=== PATIENT | female | born 1960 | race Caucasian/White ===

== ENCOUNTER → 2016-08-17 | Outpatient (CLI) | payer OTHER ==
[2016-08-17 12:06] LABS: Basophils # (A) 0.1 k/uL (0-0.2); Basophils % (A) 1 %; CH 30.6; CHCM 34.2; Eosinophils # (A) 0.7 k/uL (0-0.7); Eosinophils % (A) 8 %; HCT 37.5 % (34.0-46.0); HDW 2.44; HGB 12.8 gm/dL (11.4-16.0); Luc % (Auto) 4; Lymphocytes % (A) 31 %; MCH 30.6 pg (25.0-35.0); MCHC 34.1 g/dL (31.0-37.0); MCV 89.8 fL (80.0-100.0); Mean Platelet Volume 7.3; Monocytes # (A) 0.5 k/uL (0-1.0); Monocytes % (A) 5 %; Neutrophils % (A) 51 %; RBC 4.17 m/uL (3.80-5.40); RDW 13.5 % (11.5-15.5); WBC 9.7 k/uL (3.8-10.6); WBC (Perox) 10.12
[2016-08-17 12:30] LABS: ALT 28 U/L (9-52); AST 23 U/L (14-36); Alkaline Phosphatase 54 U/L (38-126); Anion Gap 11 mmol/L; Blood Urea Nitrogen 4 mg/dL (7-17); Calcium 8.9 mg/dL (8.4-10.2); Carbon Dioxide 24 mmol/L (22-30); Chloride 95 mmol/L (98-107); Glucose 166 mg/dL (74-99); Non-African American GFR(MDRD) >60 (>60 ml/min/1.73 sqM); Sodium 130 mmol/L (137-145); Total Bilirubin 0.4 mg/dL (0.2-1.3); Total Protein 6.6 g/dL (6.3-8.2)
[2016-08-17 13:12] LABS: Vitamin B12 255 pg/mL (239-931)
== END | disposition home or self-care (01) ==
LOC: LABWHC1 11:16
PROVIDERS: ATTEND Psychiatry & Neurology Neurology
DX: E55.9 Vitamin D deficiency, unspecified (principal); M62.838 Other muscle spasm
CPT/HCPCS: 36415; 80053; 82306; 82607; 85025

== ENCOUNTER → 2016-08-17 | Outpatient (CLI) | payer OTHER ==
--- NOTE | 2016-08-17 16:01 | MR ---
EXAMINATION TYPE: MR lumbar spine wo/w con DATE OF EXAM: 08/17/2016 1:15 PM COMPARISON: 11/16/2014 HISTORY: 56-year-old female with low back pain Technique: Multiplanar, multisequence images of the lumbar spine were obtained before and after admin istration of 20 mL intravenous MultiHance gadolinium contrast. FINDINGS: There is metal hardware artifact relating to the patient's left hip total arthroplasty. Conus medullaris is normal. Redemonstrated are postsurgical changes of L5-S1 posterior and interbody lumbar fusion with correspon ding laminectomies. There is degenerative disc disease throughout the lumbar spine with desiccated discs. There is modera te to severe narrowing at L3-L4 progress from 11/16/2014 has had a grade 1 retrolisthesis. Trace retrolisthesis at both L1-L2 and L2-L3 appear new from prior exam. There is a new superior endplate Schmorl's node of L1 vertebral body. Redemonstrated posterior annular fissures at both L3-4 and L4-L5. At T12-L1, mild diffuse disc bulge with degenerative disc disease progressed at this level. No signif icant spinal canal or neuroforaminal stenosis. At L1-L2, trace grade 1 retrolisthesis. There is diffuse disc bulge impressing on the ventral thecal sac minimally increased in the interval. No significant spinal canal or neural foraminal stenosis. At L2-L3, there is trace retrolisthesis with diffuse disc bulge and facet degenerative change. Minima l bilateral inferior neuroforaminal narrowing is slightly increased. There is ventral impression on t he thecal sac without significant spinal canal stenosis. At L3-L4, there is diffuse disc bulge with posterior annular fissure. There is facet degenerative sena nge and moderate right greater than left neuroforaminal stenosis, relatively stable. A grade 1 retrol isthesis is slightly increased and there is increased, now moderate spinal canal stenosis here. At L4-L5, level above the fusion, there is diffuse disc bulge with enhancing posterior annular. Ligam entum flavum flavum thickening and facet arthropathy. Prominent dorsal epidural fat is also present. There is increasing, now moderate to severe spinal canal stenosis. Some minimal CSF signal remains ar ound the cauda equina nerve roots. Similar moderate left and mild right neuroforaminal stenosis. At L5-S1, at the fused level, there is facet degenerative change. Suspect moderate left and mild righ t neural foraminal stenosis, not significantly changed in the interval. No spinal canal stenosis. No suspicious perineural or epidural enhancement A 1.3 cm left adrenal gland nodule is unchanged ingesting benign adrenal adenoma. IMPRESSION: 1. Status post posterior and interbody L5-S1 lumbar fusion with laminectomy. There is similar moderat e left and mild right neuroforaminal stenosis at this level. 2. Increasing, now moderate to severe spinal canal stenosis above the fusion at L4-L5; similar modera te left and mild right neuroforaminal stenosis here. 3. Grade 1 retrolisthesis at L3-L4 and degenerative disc disease has increased in the interval. There is also new trace grade 1 retrolistheses at L1-L2 and L2-L3. 4. Moderate right greater than left neuroforaminal stenosis at L3-L4 is also relatively similar.
== END | disposition home or self-care (01) ==
LOC: RADMRIMAIN 11:40
PROVIDERS: ATTEND Orthopaedic Surgery Orthopaedic Surgery of the Spine
DX: M48.06 Spinal stenosis, lumbar region (principal); M99.73 Connective tissue and disc stenosis of intervertebral foramina of lumbar region; M43.16 Spondylolisthesis, lumbar region; M54.16 Radiculopathy, lumbar region; E11.8 Type 2 diabetes mellitus with unspecified complications; Z98.1 Arthrodesis status
CPT/HCPCS: 72158; A9577

== ENCOUNTER → 2016-10-28 | Outpatient (CLI) | payer OTHER ==
[2016-10-28 16:40] LABS: Blood Urea Nitrogen 2 mg/dL (7-17); Non-African American GFR(MDRD) >60 (>60 ml/min/1.73 sqM)
== END | disposition home or self-care (01) ==
LOC: LABWHC1 15:45
PROVIDERS: ATTEND Psychiatry & Neurology Neurology
DX: Z01.812 Encounter for preprocedural laboratory examination (principal); R51 Headache; R42 Dizziness and giddiness; M54.5 Low back pain
CPT/HCPCS: 36415; 82565; 84520

== ENCOUNTER → 2016-10-30 | Outpatient (CLI) | payer OTHER ==
--- NOTE | 2016-10-30 09:30 | MR ---
EXAMINATION TYPE: MR brain wo con DATE OF EXAM: 10/30/2016 8:47 AM COMPARISON: NONE HISTORY: R51 Headaches R42 dizziness FINDINGS: The ventricles, basal cisterns and sulci overlying the cerebral convexities are mildly enlarged. Dev elopmental asymmetry of the lateral ventricles. There is evidence of mild periventricular white matter ischemic demyelination. Remote deep white matter insults are also noted. No acute edema is seen on diffusion weighted imaging. There is no evidence for midline shift or mass effect. Acute intracranial hemorrhage or extra-axial collection is not evident. Small air-fluid level left maxillary sinus may reflect acute sinusitis. Chronic ethmoidal thickening noted. Mastoid air cells well aerated. IMPRESSION: Age-related atrophic and chronic small vessel ischemic change. No acute intracranial process at this time.
--- NOTE | 2016-10-30 09:45 | MR ---
EXAMINATION TYPE: MR lumbar spine wo/w con DATE OF EXAM: 10/30/2016 9:15 AM COMPARISON: 08/17/2016 HISTORY: low back pain for many years CONTRAST: The patient was injected with 20 mL intravenous MultiHance gadolinium contrast. Multiplanar, MultiSpin echo imaging of the lumbar spine was performed. L1-L2: There is moderate disc desiccation noted. Broad-based posterocentral disc bulge with effacemen t of the ventral thecal sac. No evidence for lateral recess stenosis or central stenosis. Facet joint arthropathy contributing to mild bilateral foraminal encroachment. L2-L3: There is moderate disc desiccation noted. Broad-based posterocentral disc bulge with effacemen t of the ventral thecal sac. No evidence for lateral recess stenosis or central stenosis. Facet joint arthropathy contributing to mild bilateral foraminal encroachment. L3-L4: Moderate to severe disc desiccation. Moderate circumferential disc bulge greatest posteriorly. Hypertrophy of the ligamentum flavum and facet joint arthropathy result in moderate central stenosis . There is moderate bilateral foraminal encroachment right greater than left. L4-L5: Moderate to severe disc desiccation. Moderate circumferential disc bulge greatest posteriorly. Hypertrophy of the ligamentum flavum and facet joint arthropathy result in moderate central stenosis . There is moderate bilateral foraminal encroachment. L5-S1: Postoperative changes of the lumbar laminectomy and fusion with anterior vertebral body spacer noted as well as pedicular screws noted. Alignment is anatomic. Mild posterior disc bulge. Grade 1 a nterolisthesis L5 on S1 of 2 mm. Moderate bilateral foraminal encroachment. Lumbar segments are intact. No paraspinal masses are identified. Conus medullaris has a normal appe arance. Enhancing granulation tissue noted at surgical site. No pathologic enhancement identified at this time. IMPRESSION: 1. Central stenosis at L3-4 and L4-5 as discussed above. 2. Multilevel degenerative disc disease. 3. Multilevel foraminal encroachment. 4. Postoperative changes L5-S1 are stable.
== END | disposition home or self-care (01) ==
LOC: RADMRIMAIN 08:01
PROVIDERS: ATTEND Nurse Practitioner Acute Care
DX: M48.06 Spinal stenosis, lumbar region (principal); M51.36 Other intervertebral disc degeneration, lumbar region; G31.9 Degenerative disease of nervous system, unspecified; I67.82 Cerebral ischemia; Z98.890 Other specified postprocedural states; Z88.1 Allergy status to other antibiotic agents; Z88.5 Allergy status to narcotic agent; Z88.8 Allergy status to other drugs, medicaments and biological substances; Z88.6 Allergy status to analgesic agent
CPT/HCPCS: 70551; 72158; A9577

== ENCOUNTER → 2017-03-08 | Outpatient (CLI) | payer OTHER ==
[2017-03-08 10:08] LABS: Basophils # (A) 0.1 k/uL (0-0.2); Basophils % (A) 1 %; CH 30.6; CHCM 33.3; Eosinophils # (A) 0.9 k/uL (0-0.7); Eosinophils % (A) 8 %; HDW 2.34; HGB 13.5 gm/dL (11.4-16.0); Luc # (Auto) 0.22; Luc % (Auto) 2; Lymphocytes # (A) 2.7 k/uL (1.0-4.8); Lymphocytes % (A) 25 %; MCH 30.5 pg (25.0-35.0); MCV 92.5 fL (80.0-100.0); Mean Platelet Volume 7.7; Monocytes # (A) 0.8 k/uL (0-1.0); Monocytes % (A) 8 %; Neutrophils # (A) 5.9 k/uL (1.3-7.7); Neutrophils % (A) 56 %; RBC 4.44 m/uL (3.80-5.40); RDW 13.7 % (11.5-15.5); WBC 10.6 k/uL (3.8-10.6)
[2017-03-08 10:56] LABS: ALT 27 U/L (9-52); AST 16 U/L (14-36); Alkaline Phosphatase 71 U/L (38-126); Anion Gap 9 mmol/L; Blood Urea Nitrogen 3 mg/dL (7-17); Calcium 9.3 mg/dL (8.4-10.2); Carbon Dioxide 26 mmol/L (22-30); Chloride 98 mmol/L (98-107); Glucose 146 mg/dL (74-99); Non-African American GFR(MDRD) >60 (>60 ml/min/1.73 sqM); Potassium 4.1 mmol/L (3.5-5.1); Sodium 133 mmol/L (137-145); Total Bilirubin 0.3 mg/dL (0.2-1.3); Total Protein 6.6 g/dL (6.3-8.2)
[2017-03-08 17:11] LABS: Iron Saturation 32.41 (12.00-45.00)
== END | disposition home or self-care (01) ==
LOC: LABWHC1 09:30
PROVIDERS: ATTEND Psychiatry & Neurology Neurology
DX: E55.9 Vitamin D deficiency, unspecified (principal); M62.838 Other muscle spasm
CPT/HCPCS: 36415; 80053; 82306; 82607; 83540; 83550; 84439; 84443; 84466; 84481; 85025

== ENCOUNTER → 2017-05-06 | Outpatient (CLI) | payer OTHER ==
--- NOTE | 2017-05-06 15:47 | CTL ---
EXAMINATION TYPE: CT Low Dose Lung DATE OF EXAM ORDERED: 05/06/2017 HISTORY: Long-term tobacco use.. Lung cancer screening. Symptoms of cough per patient. Automated exposure control for dose reduction was used. SCREENING VISIT: Initial study COMPARISON: None TECHNIQUE: Low dose computed tomography scan was performed through the chest at 1 mm thick sections a nd reconstructed images in the coronal plane at [address] DIAGNOSTIC QUALITY: Limited, but interpretable (Due to patient's body habitus) FINDINGS: LUNG NODULES: None. LUNGS: COPD: Severity: Mild Fibrosis: Severity: None Lymph nodes: None Other findings: None BILATERAL PLEURAL SPACE: Effusion: None Calcification: None Thickening: None Pneumothorax: None HEART: Heart Size: Normal Coronary calcification: None Pericardial effusion: None OTHER FINDINGS: Upper abdomen: Visualized liver is heterogeneously hypodense relative to spleen consistent with fatty infiltration. There is 1.1 cm splenule in the anterior splenic hilum axial image 56. Bony thorax: There is slight scoliotic curvature with mild to moderate multilevel spurring in the tho racic spine. Supraclavicular region: No obvious abnormality seen. Other: There is artifact from right surgical hardware this causes streak artifact limiting evaluation at supraclavicular level. IMPRESSION: No suspicious parenchymal nodules or masses. FOLLOW UP CT CHEST RECOMMENDATION: Annual low-dose lung screening CT CT LUNG RAD: Lung-Rad 1 Negative
== END | disposition home or self-care (01) ==
LOC: RADCTMAIN 14:24
PROVIDERS: ATTEND Family Medicine
DX: R05 Cough (principal)

== ENCOUNTER 2017-06-03 11:01 | Observation (INO) | payer OTHER ==
[2017-06-03] MEDS ORDERED: NALOXONE 0.4 MG/ML 1 ML VIAL IV PRN (14:36)
[2017-06-03] MEDS ORDERED: ACETAMINOPHEN TAB 325 MG TAB PO PRN (14:36)
[2017-06-03] MEDS ORDERED: ALPRAZolam 0.25 MG TAB PO PRN (14:36)
[2017-06-03] MEDS ORDERED: ONDANSETRON 4 MG TAB PO PRN (14:38)
[2017-06-03] MEDS ORDERED: IPRATROPIUM-ALBUTEROL 3 ML NEB INHALATION PRN (14:38)
[2017-06-03] MEDS ORDERED: MECLIZINE 12.5 MG TAB PO PRN (14:38)
[2017-06-03] MEDS ORDERED: tiZANidine 4 MG TAB PO PRN (14:38)
[2017-06-03] MEDS ORDERED: TEMAZEPAM 15 MG CAP PO PRN (14:40)
[2017-06-03] MEDS: SODIUM CHLORIDE 0.9% 1,000 ML IV SCH (15:07)
[2017-06-03] MEDS: oxyCODONE-APAP 7.5-325MG 1 EACH TAB PO PRN (15:07)
--- NOTE | 2017-06-03 15:31 | XR ---
EXAMINATION TYPE: XR chest 1V DATE OF EXAM: 06/03/2017 COMPARISON: 01/13/2012 HISTORY: CHF TECHNIQUE: Single frontal view of the chest is obtained. FINDINGS: There is no focal air space opacity, pleural effusion, or pneumothorax seen. The cardiac silhouette size is within normal limits. The osseous structures are intact. Postsurgical change rig ht shoulder. No overt failure. IMPRESSION: No acute process.
[2017-06-03 15:33] LABS: Appearance,Urine Clear (Clear); Bilirubin,Urine Negative (Negative); Blood,Urine Negative (Negative); Color,Urine Light Yellow; Glucose,Urine (UA) Negative (Negative); Ketones,Urine Negative (Negative); Leukocyte Esterase,Urine Negative (Negative); PH, Urine 6.5 (5.0-8.0); Protein,Urine Negative (Negative); Specific Gravity,Urine 1.003 (1.001-1.035); Urobilinogen,Urine <2.0 mg/dL (<2.0)
--- NOTE | 2017-06-03 16:00 | HP ---
HISTORY AND PHYSICAL CHIEF COMPLAINT: Recurrent episodes of syncope. HISTORY OF PRESENT ILLNESS: This 57-year-old woman with a past medical history of multiple medical problems including COPD, diabetes, hyperlipidemia, hypertension, history of MRSA, appendectomy, back surgery, bipolar, schizoaffective disorder, nicotine dependence, being followed by Dr. Angela Ag in the outpatient setting was having recurrent episodes of syncope. The patient reports that the patient is passing out at least 5 to 6 times and sometimes the patient woke up from the floor also. There is no history of obvious injury at this time. There is no eyewitness. The patient also reports excessive stress recently. The EKG was done in the doctor's office within normal limits and there are no orthostatic changes. Further workup is being planned at this time. Telemetry is being applied. PAST MEDICAL HISTORY: COPD, diabetes, hyperlipidemia, DJD, history of recent bronchitis, history of MRSA, history of appendectomy, back surgery, history of bipolar, schizoaffective disorder. MEDICATIONS: Home medications are: 1. Oxycodone 7.9 t.i.d. p.r.n. 2. Vistaril 50 mg q.a.m. and 25 mg p.o. b.i.d. 3. DuoNeb t.i.d. p.r.n. 4. Lopid 600 mg b.i.d. 5. Requip 2 mg q.h.s. 6. Zofran 4 mg q.6h p.r.n. 7. Antivert 25 mg b.i.d. p.r.n. 8. Glucophage 500 mg p.o. b.i.d. 9. Glucotrol XL 5 mg p.o. daily. 10.Trileptal 300 mg p.o. b.i.d. 11.Zanaflex 4 mg p.o. t.i.d. p.r.n. 12.Lyrica 150 mg p.o. b.i.d. 13.Zestril 5 mg p.o. daily. 14.Aspirin 81 mg daily. 15.Zyprexa 20 mg p.o. daily. ALLERGIES: BACITRACIN, LITHIUM, NEOMYCIN, POLYMYXIN B, RISPERDAL, KETOROLAC, MELOXICAM, MORPHINE, ULTRAM, PAPER TAPE. FAMILY HISTORY: History of cancer and DVT in the family. SOCIAL HISTORY: History of smoking on a daily basis. REVIEW OF SYSTEMS: ENT: Mentioned earlier. CARDIOVASCULAR: No angina. RESPIRATORY: No cough, hemoptysis. GI: No nausea. : No dysuria. NERVOUS SYSTEM: As mentioned. ALLERGY/IMMUNOLOGY: No asthma or hayfever. MUSCULOSKELETAL: As mentioned. HEMATOLOGY/ONCOLOGY: No history of anemia. ENDOCRINE: Diabetes. CONSTITUTIONAL:As mentioned. DERMATOLOGY: Negative. RHEUMATOLOGY: Negative. PSYCHIATRY: As mentioned earlier. PHYSICAL EXAMINATION: Alert and oriented x3. Pulse is 69, blood pressure 130/79, respiration 18, temperature 98 degrees, pulse ox 97% on room air. HEENT: Conjunctivae normal. NECK: No jugular venous distention. CARDIOVASCULAR: S1, S2 muffled. RESPIRATORY: Breath sounds diminished in the bases. No rhonchi. No crackles. ABDOMEN: Soft, obese, nontender. No mass palpable. LEGS: No edema, no swelling. NERVOUS SYSTEM: Higher function as mentioned earlier, moves all 4 limbs, no focal motor deficits. LYMPHATICS: No lymphadenopathy in the neck, axillae, groin. SKIN: No ulcer, rash or bleeding. LABS: At this time awaited. ASSESSMENT: 1. Recurrent syncope for evaluation rule out cardiac syncope and seizures, possibly psychogenic or stress induced. 2. Chronic obstructive pulmonary disease. 3. Diabetes mellitus type 2. 4. Hyperlipidemia. 5. History of degenerative joint disease. 6. History of recent bronchitis. 7. History of MRSA. 8. History of back surgery. 9. History of section. 10.History of cholecystectomy. 11.History of bipolar, schizoaffective disorder. 12.History of nicotine dependence. RECOMMENDATIONS AND DISCUSSION: This 57-year-old woman admitted with multiple complex medical issues, will monitor the patient closely. Continue the current management, symptomatic treatment. I would recommend cardiology and neurology evaluations. Also telemetry to rule out the possibility of any cardiac arrhythmia. Otherwise I would also recommend orthostatic vitals and continue to monitor. I would also recommend a psychiatric evaluation because of the history and the current events the patient reported. Otherwise we will follow the patient closely. DVT prophylaxis. See orders for details. Prognosis guarded. Copy of dictation forwarded to Dr. Angela Ag who is the primary physician. MMODL / IJN: [id number] /
[2017-06-03 16:01] LABS: Basophils # (A) 0.1 k/uL (0-0.2); Basophils % (A) 1 %; Eosinophils # (A) 0.5 k/uL (0-0.7); Eosinophils % (A) 5 %; HCT 35.6 % (34.0-46.0); Lymphocytes # (A) 3.4 k/uL (1.0-4.8); Lymphocytes % (A) 31 %; MCH 30.6 pg (25.0-35.0); MCHC 33.7 g/dL (31.0-37.0); MCV 90.9 fL (80.0-100.0); Mean Platelet Volume 6.5; Monocytes # (A) 0.8 k/uL (0-1.0); Monocytes % (A) 7 %; Neutrophils # (A) 5.7 k/uL (1.3-7.7); Neutrophils % (A) 53 %; Platelet Count 427 k/uL (150-450); RBC 3.91 m/uL (3.80-5.40); RDW 12.7 % (11.5-15.5); WBC 10.8 k/uL (3.8-10.6)
[2017-06-03 16:11] LABS: ALT 24 U/L (9-52); AST 17 U/L (14-36); Albumin 3.9 g/dL (3.5-5.0); Alkaline Phosphatase 70 U/L (38-126); Anion Gap 9 mmol/L; Blood Urea Nitrogen 3 mg/dL (7-17); Calcium 9.1 mg/dL (8.4-10.2); Carbon Dioxide 30 mmol/L (22-30); Chloride 90 mmol/L (98-107); Glucose 109 mg/dL (74-99); Potassium 3.9 mmol/L (3.5-5.1); Sodium 129 mmol/L (137-145); Total Bilirubin 0.2 mg/dL (0.2-1.3); Total Protein 6.5 g/dL (6.3-8.2)
[2017-06-03] MEDS: GEMFIBROZIL 600 MG TAB PO SCH (16:42)
[2017-06-03] MEDS: metFORMIN 500 MG TAB PO SCH (16:42)
[2017-06-03] MEDS: hydrOXYzine PAMOATE 25 MG CAP PO SCH ×2 (16:46→21:29)
--- NOTE | 2017-06-03 17:21 | US ---
EXAMINATION TYPE: US carotid duplex BILAT DATE OF EXAM: 06/03/2017 COMPARISON: NONE CLINICAL HISTORY: stroke. Patient states waking up on floor and don't know how she got there. HTN. No hx of TIA EXAM MEASUREMENTS: RIGHT: Peak Systolic Velocity (PSV) cm/sec ----- Right CCA: 78.8 ----- Right ICA: 175.6 ----- Right ECA: 114.0 ICA/CCA ratio: 2.2 RIGHT: End Diastole cm/sec ----- Right CCA: 27.0 ----- Right ICA: 45.5 ----- Right ECA: 18.7 LEFT: Peak Systolic Velocity (PSV) cm/sec ----- Left CCA: 87.5 ----- Left ICA: 157.8 ----- Left ECA: 85.3 ICA/CCA ratio: 1.8 LEFT: End Diastole cm/sec ----- Left CCA: 29.2 ----- Left ICA: 53.2 ----- Left ECA: 12.8 VERTEBRALS (direction of flow): Right Vertebral: Antegrade Left Vertebral: Antegrade Rhythm: Normal FOCAL FINDINGS: Wall thickening. Elevated right mid and distal ICA velocities, and elevated left prox imal ICA velocity. Plaque seen in left bulb. Limited exam due to pulsatile vessel. CTA can be used as a complimentary step to characterize anatomically. IMPRESSION: 1. IRMA FINDINGS CONSISTENT WITH 50 TO 69% STENOSIS. 2. LICA FINDINGS CONSISTENT WITH 50 TO 69% STENOSIS.
--- NOTE | 2017-06-03 17:24 | P.CNNES ---
History of Present Illness Consult date: 06/03/17 Requesting physician: Niurka Light Reason for Consult: Syncope History of Present Illness: Patient is a pleasant 49-year-old female who is being evaluated by the neurology service on 06/03/2017 per the request of Dr. Light for syncopal episodes. Patient does have a significant history of COPD, diabetes, hyperlipidemia, spine surgery, bipolar disorder, schizoaffective affective disorder, and vertigo. Patient states she was seen by her primary care physician Dr. Angela Ag in the outpatient setting and reported multiple syncopal episodes. Patient states a few episodes she has woken up on the floor. No obvious injury noted. These episodes were not witnessed. Patient does live alone. Patient is known to our service and has history of dizziness and is on Antivert in the home setting. Last MRI of the brain was done in October 2016 which showed chronic small vessel ischemic changes. Patient was advised to come to the ER for further evaluation. Cardiology's been consulted for possible cardiac arrhythmia. Laboratory workup on admission revealed WBC is 10.8, sodium low at 129, potassium 3.9, chloride 90, and carbon dioxide 30. BUN was 3 with creatinine 0.50. Urinalysis was negative. Vital signs were stable at 1097.6, heart rate 86, respiratory rate 16, blood pressure 134/64, O2 sat was 98% on room air. At the time of my evaluation, patient's resting comfortably in bed and appears to be in no acute distress. Review of Systems REVIEW OF SYSTEMS: Otherwise unremarkable and noncontributory. Past Medical History Past Medical History: COPD, Diabetes Mellitus, Hyperlipidemia, Musculoskeletal Disorder, Osteoarthritis (OA) Additional Past Medical History / Comment(s): recent bronchitis History of Any Multi-Drug Resistant Organisms: MRSA Date of last positivie culture/infection: 2013 MDRO Source:: right thigh Past Surgical History: Appendectomy, Back Surgery, Section, Cholecystectomy, Joint Replacement, Orthopedic Surgery, Tubal Ligation Additional Past Surgical History / Comment(s): both knees replaced, right shoulder replaced, left hip, left shoulder rotator cuff repair, carapal tunnel surg., tarsal tunnel surg both feet Past Anesthesia/Blood Transfusion Reactions: No Reported Reaction Past Psychological History: Bipolar, Schizoaffective Disorder Smoking Status: Current every day smoker Past Alcohol Use History: None Reported Additional Past Alcohol Use History / Comment(s): 1ppd for 30 yrs. Past Drug Use History: None Reported - Past Family History Sister(s) Family Medical History: Cancer, Deep Vein Thrombosis (DVT) Medications and Allergies Home Medications Medication Instructions Recorded Confirmed Type Aspirin 81 mg PO HS 07/21/15 06/03/17 History Meclizine [Antivert] 25 mg PO BID PRN 07/21/15 06/03/17 History OLANZapine [ZyPREXA] 20 mg PO DAILY 07/21/15 06/03/17 History OXcarbazepine [Trileptal] 300 mg PO BID 07/21/15 06/03/17 History metFORMIN HCL [Glucophage] 500 mg PO BID 07/21/15 06/03/17 History oxyCODONE-APAP 7.5-325MG [Percocet 1 tab PO TID PRN 07/21/15 06/03/17 History 7.5-325 mg] tiZANidine [Zanaflex] 4 mg PO TID PRN 07/21/15 06/03/17 History Gemfibrozil [Lopid] 600 mg PO AC-BID 06/03/17 06/03/17 History Ipratropium-Albuterol Nebulize 3 ml INHALATION RT-TID PRN 06/03/17 06/03/17 History [Duoneb 0.5 mg-3 mg/3 ml Soln] Lisinopril [Zestril] 5 mg PO DAILY 06/03/17 06/03/17 History Ondansetron HCl [Zofran] 4 mg PO Q6HR PRN 06/03/17 06/03/17 History Pregabalin [Lyrica] 150 mg PO BID 06/03/17 06/03/17 History glipiZIDE XL [Glucotrol Xl] 5 mg PO DAILY 06/03/17 06/03/17 History hydrOXYzine PAMOATE [Vistaril] 25 mg PO BID 06/03/17 06/03/17 History hydrOXYzine PAMOATE [Vistaril] 50 mg PO HS 06/03/17 06/03/17 History rOPINIRole HCL [Requip] 2 mg PO HS 06/03/17 06/03/17 History Allergies Allergy/AdvReac Type Severity Reaction Status Date / Time bacitracin Allergy Rash/Hives Verified 06/03/17 13:26 [From Neosporin ([id number])] bacitracin zinc Allergy Rash/Hives Verified 06/03/17 13:26 [From Neosporin ([id number])] lithium Allergy muscle Verified 06/03/17 13:26 spasms neomycin sulfate Allergy Rash/Hives Verified 06/03/17 13:26 [From Neosporin ([id number])] polymyxin B Allergy Rash/Hives Verified 06/03/17 13:26 [From Neosporin ([id number])] risperidone [From Risperdal] Allergy vision loss Verified 06/03/17 13:26 ketorolac tromethamine AdvReac Nausea & Verified 06/03/17 13:26 [From Toradol] Vomiting meloxicam [From Mobic] AdvReac Nausea & Verified 06/03/17 13:26 Vomiting morphine AdvReac Nausea & Verified 06/03/17 13:26 Vomiting tramadol AdvReac Nausea & Verified 06/03/17 13:26 Vomiting paper tape AdvReac peels skin Uncoded 07/21/15 12:14 Physical Examination - Vital Signs Vital Signs: Vital Signs Temp Pulse Resp BP BP BP Pulse Ox 06/03/17 15:08 180/91 199/93 185/95 06/03/17 14:36 98.0 F 69 18 136/79 96 06/03/17 12:56 97.6 F 86 16 134/64 98 06/03/17 12:49 16 Intake and Output 06/03/17 06/03/17 06/03/17 06:59 14:59 22:59 Other: Voiding Method Toilet Incontinent Weight 90 kg Patient Weight 06/04/17 06:59 Weight 90 kg PHYSICAL EXAM: GENERAL APPEARANCE: Patient is a well-developed, female who appears to be in no acute distress. HEENT: Normocephalic, atraumatic, no facial asymmetry is seen. Neck is supple with no masses felt. CARDIOVASCULAR: Regular rate and rhythm. ABDOMEN: Nontender, nondistended. EXTREMITIES: Show no edema or clubbing. NEUROLOGICAL EXAM: Patient is awake, alert, and oriented 3. Speech and language are normal. Strength is full in all 4 extremities. Sensory exam to light touch is normal in all 4 extremities. No facial asymmetry is seen on cranial nerve testing. No tremors or seizure-like activity noted. Results - Laboratory Findings CBC and BMP: 06/03/17 15:34 06/03/17 15:34 Abnormal Lab Findings: Abnormal Labs 06/03/17 06/03/17 15:34 15:34 WBC 10.8 H Sodium 129 L Chloride 90 L BUN 3 L Creatinine 0.50 L Glucose 109 H Assessment and Plan Plan: Impression: 1. Recurrent syncope 2. Diabetes mellitus 3. COPD 4. Chronic pain syndrome 5. History of bipolar/schizoaffective disorder Recommendations: Patient reports having had multiple episodes of syncope in the home setting. No witnessed episodes. No lateralizing weakness or neurological deficits. Patient does report she has a lot of stress in her life at this point. She may need a psychiatric consult. I recommend telemetry and cardiology has been consulted. I recommend orthostatic vital signs. I will order an MRI to evaluate for contributing etiology. I doubt this is seizure activity, but I will check an EEG. Continue neurological checks. Continue medical management. I will continue to follow with you. Further recommendations to follow. Thank you for allowing me to participate in the care of your patient. Feel free to call with any questions or concerns. I performed an examination of the patient and discussed the management with the INFORMATICS APPLICATION ANALYST. I have reviewed the INFORMATICS APPLICATION ANALYST notes and agree with the findings and plan of care.
[2017-06-03 17:32] LABS: Glucose,Whole Blood 187 mg/dL (75-99)
--- NOTE | 2017-06-03 20:18 | MR ---
EXAMINATION TYPE: MR brain wo con DATE OF EXAM: 06/03/2017 COMPARISON: 10/30/2016 HISTORY: Syncope TECHNIQUE: Standard multiplanar, multisequence MRI departmental protocol including diffusion weighted imaging. FINDINGS: There is no restricted diffusion to suggest acute or subacute infarction. There is no evide nce of hemorrhage or mass or mass effect. The intra-axial and extra-axial compartment evaluation is u nremarkable. The vascular flow voids are unremarkable. The calvarium is without focal defects. The middle ear cavities and mastoid sinus air cells and paranasal sinuses are clear. The orbits are intact. No incidental extracranial findings. IMPRESSION: NEGATIVE EXAMINATION.
[2017-06-03] MEDS: ASPIRIN 81 MG PO SCH (21:14)
[2017-06-03] MEDS: PREGABALIN 75 MG CAP PO SCH (21:15)
[2017-06-03] MEDS: HEPARIN SODIUM,PORCINE 5,000 UNIT/ML 1 ML VIAL SQ SCH (21:15)
[2017-06-03] MEDS: OXcarbazepine 300 MG TAB PO SCH (21:15)
[2017-06-03] MEDS: ATORVASTATIN 20 MG TAB PO SCH (21:29)
[2017-06-04 04:12] LABS: Basophils % (A) 1 %; Eosinophils # (A) 0.5 k/uL (0-0.7); Eosinophils % (A) 7 %; HCT 34.3 % (34.0-46.0); HGB 11.1 gm/dL (11.4-16.0); Lymphocytes # (A) 2.3 k/uL (1.0-4.8); Lymphocytes % (A) 33 %; MCH 29.9 pg (25.0-35.0); MCHC 32.2 g/dL (31.0-37.0); MCV 92.8 fL (80.0-100.0); Mean Platelet Volume 6.4; Monocytes # (A) 0.5 k/uL (0-1.0); Monocytes % (A) 8 %; Neutrophils # (A) 3.3 k/uL (1.3-7.7); Neutrophils % (A) 48 %; Platelet Count 349 k/uL (150-450); RBC 3.69 m/uL (3.80-5.40); RDW 12.8 % (11.5-15.5)
[2017-06-04 04:24] LABS: Anion Gap 5 mmol/L; Blood Urea Nitrogen 4 mg/dL (7-17); Carbon Dioxide 28 mmol/L (22-30); Chloride 94 mmol/L (98-107); Glucose 118 mg/dL (74-99); Potassium 4.3 mmol/L (3.5-5.1); Sodium 127 mmol/L (137-145)
[2017-06-04] MEDS: SODIUM CHLORIDE 0.9% 1,000 ML IV SCH ×2 (05:54→17:26)
[2017-06-04] MEDS: hydrOXYzine PAMOATE 25 MG CAP PO SCH ×3 (05:54→23:00)
[2017-06-04] MEDS: oxyCODONE-APAP 7.5-325MG 1 EACH TAB PO PRN ×2 (05:55→14:15)
[2017-06-04] MEDS: HEPARIN SODIUM,PORCINE 5,000 UNIT/ML 1 ML VIAL SQ SCH ×2 (08:00→22:56)
[2017-06-04] MEDS: OXcarbazepine 300 MG TAB PO SCH ×2 (08:00→22:56)
[2017-06-04] MEDS: OLANZapine 10 MG TAB PO SCH (08:00)
[2017-06-04] MEDS: LISINOPRIL 5 MG TAB PO SCH (08:00)
[2017-06-04] MEDS: metFORMIN 500 MG TAB PO SCH ×2 (08:00→17:26)
[2017-06-04] MEDS: PANTOPRAZOLE 40 MG TABLET PO SCH (08:00)
[2017-06-04] MEDS: NICOTINE 14MG/24HR PATCH TRANSDERM SCH ×2 (08:00→08:07)
[2017-06-04] MEDS: PREGABALIN 75 MG CAP PO SCH ×2 (08:02→23:00)
[2017-06-04] MEDS: GEMFIBROZIL 600 MG TAB PO SCH ×2 (08:02→17:26)
--- NOTE | 2017-06-04 09:15 | ECHOF ---
Referral Reason:Stroke MEASUREMENTS -------- HEIGHT: 165.1 cm WEIGHT: 89.8 kg BP: 136/79 RVIDd: 3.0 cm (< 3.3) IVSd: 1.3 cm (0.6 - 1.1) LVIDd: 4.0 cm (3.9 - 5.3) LVPWd: 1.3 cm (0.6 - 1.1) IVSs: 1.8 cm LVIDs: 3.0 cm LVPWs: 1.6 cm LA Diam: 3.8 cm (2.7 - 3.8) LAESV Index (A-L): 23.61 ml/m Ao Diam: 2.7 cm (2.0 - 3.7) AV Cusp: 2.1 cm (1.5 - 2.6) MV EXCURSION: 13.341 mm (> 18.000) MV EF SLOPE: 71 mm/s (70 - 150) EPSS: 0.3 cm MV E Humza: 0.81 m/s MV DecT: 202 ms MV A Humza: 0.91 m/s MV E/A Ratio: 0.89 RAP: 5.00 mmHg RVSP: 19.91 mmHg FINDINGS -------- Sinus rhythm. This was a technically good study. The left ventricular size is normal. There is mild concentric left ventricular hypertrophy. Overa ll left ventricular systolic function is normal with, an EF between 55 - 60 %. The right ventricle is normal in size. Normal LA size by volume 22+/-6 ml/m2. The right atrium is normal in size. The aortic valve is trileaflet and appears structurally normal. The mitral valve is normal. Mild tricuspid regurgitation present. Right ventricular systolic pressure is normal at < 35 mmHg. Trace/mild (physiologic) pulmonic regurgitation. The aortic root size is normal. Normal inferior vena cava with normal inspiratory collapse consistent with estimated right atrial pre ssure of 5 mmHg. There is no pericardial effusion. CONCLUSIONS -------- 1. Sinus rhythm. 2. This was a technically good study. 3. The left ventricular size is normal. 4. There is mild concentric left ventricular hypertrophy. 5. Overall left ventricular systolic function is normal with, an EF between 55 - 60 %. 6. The right ventricle is normal in size. 7. Normal LA size by volume 22+/-6 ml/m2. 8. The right atrium is normal in size. 9. The aortic valve is trileaflet and appears structurally normal. 10. The mitral valve is normal. 11. Mild tricuspid regurgitation present. 12. Right ventricular systolic pressure is normal at < 35 mmHg. 13. Trace/mild (physiologic) pulmonic regurgitation. 14. The aortic root size is normal. 15. Normal inferior vena cava with normal inspiratory collapse consistent with estimated right atrial pressure of 5 mmHg. 16. There is no pericardial effusion. PHOTO INTERN: Kimberley Baca RDCS
[2017-06-04] MEDS ORDERED: MECLIZINE 12.5 MG TAB PO PRN (13:08)
--- NOTE | 2017-06-04 16:35 | P.PN ---
Subjective Progress Note Date: 06/04/17 Principal diagnosis: Patient is a pleasant 49-year-old female who is being followed by the neurology service for syncopal episodes. Patient has history of COPD, diabetes , hyperlipidemia, spine surgery, bipolar disorder, schizoaffective disorder, and vertigo. Patient states she has been having few episodes where she does not remember falling or getting dizzy but does remember waking up on the floor. Patient does not injure herself during these falls. These episodes are not witnessed. There is no lateralizing weakness or speech difficulty. No dysphagia. No seizure-like activity or postictal state noted. Patient does not have seizure history. Patient had a recent CT of the brain which showed no acute process. Patient had MRI of the brain which was unremarkable. No syncopal episodes since admission. At the time of my evaluation, patient sitting up in bed eating lunch and appears to be in no acute distress. Objective - Vital Signs Vital signs: Vital Signs Temp 97.1 F L 06/04/17 15:00 Pulse 83 06/04/17 15:00 Resp 18 06/04/17 15:59 BP 165/81 06/04/17 15:00 Pulse Ox 94 L 06/04/17 16:22 Intake & Output 06/03/17 06/04/17 06/04/17 18:59 06:59 18:59 Intake Total 200 Balance 200 Weight 90 kg Intake: Oral 200 Other: Voiding Method Toilet Toilet Toilet Incontinent # Voids 2 2 4 - Exam PHYSICAL EXAM: GENERAL APPEARANCE: Patient is a well-developed, female who appears to be in no acute distress. HEENT: Normocephalic, atraumatic, no facial asymmetry is seen. Neck is supple with no masses felt. CARDIOVASCULAR: Regular rate and rhythm. ABDOMEN: Nontender, nondistended. EXTREMITIES: Show no edema or clubbing. NEUROLOGICAL EXAM: Patient is awake, alert, and oriented 3. Speech and language are normal. Strength is full in all 4 extremities. Sensory exam to light touch is normal in all 4 extremities. No facial asymmetry noted on cranial nerve testing. No seizures or tremors noted. - Labs CBC & Chem 7: 06/04/17 03:53 06/04/17 03:53 Labs: Abnormal Lab Results - Last 24 Hours (Table) 06/03/17 06/04/17 06/04/17 Range/Units 17:26 03:53 03:53 RBC 3.69 L (3.80-5.40) m/uL Hgb 11.1 L (11.4-16.0) gm/dL Sodium 127 L (137-145) mmol/L Chloride 94 L (98-107) mmol/L BUN 4 L (7-17) mg/dL Creatinine 0.50 L (0.52-1.04) mg/dL Glucose 118 H (74-99) mg/dL POC Glucose (mg/dL) 187 H (75-99) mg/dL Assessment and Plan Plan: Impression: 1. Recurrent unwitnessed syncope 2. Diabetes mellitus 3. COPD 4. Chronic pain syndrome 5. History of bipolar/schizoaffective disorder Recommendations: Patient reports having had multiple episodes of syncope in the home setting. No witnessed episodes. No lateralizing weakness or neurological deficits. Patient does report she has a lot of stress in her life at this point. She may need a psychiatric consult. I recommend telemetry and cardiology has been consulted. Orthostatic vital signs did not show drop in pressure. MRI of the brain was unremarkable. I doubt this is seizure activity but EEG was ordered and results are pending. Patient had recent workup in the office. This does not appear to be neurological and I recommend a cardiovascular workup as an outpatient and possibly a tilt table test. Continue neurological checks. Continue medical management. I will continue to follow with you on an as-needed basis. Feel free to call with any questions or concerns. I performed an examination of the patient and discussed the management with the MEDICAL RECORDS TECH. I have reviewed the MEDICAL RECORDS TECH notes and agree with the findings and plan of care.
[2017-06-04 17:18] LABS: Glucose,Whole Blood 112 mg/dL (75-99)
[2017-06-04 17:51] LABS: Sodium 126 mmol/L (137-145)
[2017-06-04] MEDS ORDERED: FUROSEMIDE 40 MG TAB PO STA (18:05)
--- NOTE | 2017-06-04 20:46 | PN ---
PROGRESS NOTE DATE OF SERVICE: 06/04/2017 This 57-year-old woman admitted with syncope also had multiple other symptoms, including dizziness and weakness. The patient also had a brain MRI done today. Neurology is following the patient. MRI showed no acute abnormality. No chest pain. No palpitations. No fever. EXAM: Alert and oriented x3. The pulse is 83, blood pressure 148/90, respirations 18, temperature 97.1, pulse ox 94% on room air. HEENT: Conjunctivae normal. NECK: No jugular venous distention. CARDIOVASCULAR: S1, S2 muffled. RESPIRATORY: Breath sounds diminished in the bases. No rhonchi. No crackles. ABDOMEN: Soft, nontender. LEGS: No edema. No swelling. NERVOUS SYSTEM: No focal deficits. LABS: At this time show WBC 7, hemoglobin 11.9. Sodium 127. Osmolality is 258. ASSESSMENT: 1. Recurrent syncope for evaluation. Rule out cardiac syncope and seizures, possibly secondary to stress-induced. 2. Hypertension. 3. Chronic obstructive pulmonary disease. 4. Diabetes mellitus type 2. 5. Hyperlipidemia. 6. History of degenerative joint disease. 7. History of recent bronchitis. 8. History of Methicillin-resistant Staphylococcus aureus. 9. History of back surgery. 10.History of section. 11.Cholecystectomy. 12.History of bipolar schizoaffective disorder. 13.History of nicotine dependence. RECOMMENDATION AND DISCUSSION: Recommend to continue current medical management and symptomatic treatment, await psychiatric evaluation. Neurology evaluation noted. Otherwise, MRI is normal. Further recommendations to follow. MMODL / IJN: [id number] /
[2017-06-04 21:19] LABS: Glucose,Whole Blood 98 mg/dL (75-99)
[2017-06-04] MEDS: METOPROLOL TARTRATE 12.5 MG TAB PO SCH (22:55)
[2017-06-04] MEDS: ASPIRIN 81 MG PO SCH (22:55)
[2017-06-04] MEDS: MECLIZINE 12.5 MG TAB PO SCH (22:56)
[2017-06-04] MEDS: ATORVASTATIN 20 MG TAB PO SCH (22:56)
[2017-06-04 23:44] LABS: Hemoglobin A1C 6.8 % (4.0-6.0)
[2017-06-05] MEDS: hydrOXYzine PAMOATE 25 MG CAP PO SCH (05:46)
[2017-06-05 07:22] LABS: Glucose,Whole Blood 133 mg/dL (75-99)
[2017-06-05] MEDS: GEMFIBROZIL 600 MG TAB PO SCH (07:29)
[2017-06-05] MEDS: NICOTINE 14MG/24HR PATCH TRANSDERM SCH ×2 (07:29→07:35)
[2017-06-05] MEDS: PREGABALIN 75 MG CAP PO SCH (07:29)
[2017-06-05] MEDS: HEPARIN SODIUM,PORCINE 5,000 UNIT/ML 1 ML VIAL SQ SCH (07:29)
[2017-06-05] MEDS: LISINOPRIL 5 MG TAB PO SCH (07:30)
[2017-06-05] MEDS: oxyCODONE-APAP 7.5-325MG 1 EACH TAB PO PRN ×2 (07:30→14:58)
[2017-06-05] MEDS: PANTOPRAZOLE 40 MG TABLET PO SCH (07:30)
[2017-06-05] MEDS: OXcarbazepine 300 MG TAB PO SCH (07:30)
[2017-06-05] MEDS: MECLIZINE 12.5 MG TAB PO SCH (07:30)
[2017-06-05] MEDS: METOPROLOL TARTRATE 12.5 MG TAB PO SCH (07:30)
[2017-06-05] MEDS: OLANZapine 10 MG TAB PO SCH (07:30)
[2017-06-05] MEDS: metFORMIN 500 MG TAB PO SCH (07:30)
[2017-06-05] MEDS ORDERED: FUROSEMIDE 20 MG TAB PO STA (11:19)
[2017-06-05 11:49] LABS: Glucose,Whole Blood 92 mg/dL (75-99)
--- NOTE | 2017-06-05 12:01 | P.NPCON ---
History of Present Illness - Reason for Consult hyponatremia - History of Present Illness Reason for consultation: Hyponatremia History of present illness: Patient is a 57-year-old female seen in renal consultation for hyponatremia. Her sodium level was 129 on admission and was down to 126 yesterday. She was maintained on normal saline at 75 mL an hour which was discontinued yesterday. Fluid restriction was started and she also received a dose of Lasix 40 mg last night. Her sodium level this morning is up to 129. Patient does have history of bipolar disorder and is maintained on Trileptal as an outpatient. Patient states his sodium level tends to run low. She denies drinking excessive amounts of water. She presented to hospital with dizziness. Orthostatics were noted to be negative. MRI of the brain was negative. She is currently being followed by neurology as well as psychiatry. Hemodynamically she stable. No vomiting or diarrhea. Oral intake is good. Denies chest pain or shortness of breath. Denies any prior history of kidney disease. She's not on any diuretics as an outpatient. Denies use of NSAIDs. Vital signs are stable. General: The patient appeared well nourished and normally developed. HEENT: Head exam is unremarkable. Neck is without jugular venous distension. LUNGS: Lungs are clear to auscultation and percussion. Breath sounds decreased. HEART: Rate and Rhythm are regular. First and second heart sounds normal. No murmurs, rubs or gallops. ABDOMEN: Abdominal exam reveals normal bowel sounds. Non-tender and non- distended. No evidence of peritonitis. EXTREMITITES: No clubbing, cyanosis, or edema. Past Medical History Past Medical History: COPD, Diabetes Mellitus, Hyperlipidemia, Musculoskeletal Disorder, Osteoarthritis (OA) Additional Past Medical History / Comment(s): recent bronchitis History of Any Multi-Drug Resistant Organisms: MRSA Date of last positivie culture/infection: 2013 MDRO Source:: right thigh Past Surgical History: Appendectomy, Back Surgery, Section, Cholecystectomy, Joint Replacement, Orthopedic Surgery, Tubal Ligation Additional Past Surgical History / Comment(s): both knees replaced, right shoulder replaced, left hip, left shoulder rotator cuff repair, carapal tunnel surg., tarsal tunnel surg both feet Past Anesthesia/Blood Transfusion Reactions: No Reported Reaction Past Psychological History: Bipolar, Schizoaffective Disorder Smoking Status: Current every day smoker Past Alcohol Use History: None Reported Additional Past Alcohol Use History / Comment(s): 1ppd for 30 yrs. Past Drug Use History: None Reported - Past Family History Sister(s) Family Medical History: Cancer, Deep Vein Thrombosis (DVT) Medications and Allergies Home Medications Medication Instructions Recorded Confirmed Type Aspirin 81 mg PO HS 07/21/15 06/03/17 History Meclizine [Antivert] 25 mg PO BID PRN 07/21/15 06/03/17 History OLANZapine [ZyPREXA] 20 mg PO DAILY 07/21/15 06/03/17 History OXcarbazepine [Trileptal] 300 mg PO BID 07/21/15 06/03/17 History metFORMIN HCL [Glucophage] 500 mg PO BID 07/21/15 06/03/17 History oxyCODONE-APAP 7.5-325MG [Percocet 1 tab PO TID PRN 07/21/15 06/03/17 History 7.5-325 mg] tiZANidine [Zanaflex] 4 mg PO TID PRN 07/21/15 06/03/17 History Gemfibrozil [Lopid] 600 mg PO AC-BID 06/03/17 06/03/17 History Ipratropium-Albuterol Nebulize 3 ml INHALATION RT-TID PRN 06/03/17 06/03/17 History [Duoneb 0.5 mg-3 mg/3 ml Soln] Lisinopril [Zestril] 5 mg PO DAILY 06/03/17 06/03/17 History Ondansetron HCl [Zofran] 4 mg PO Q6HR PRN 06/03/17 06/03/17 History Pregabalin [Lyrica] 150 mg PO BID 06/03/17 06/03/17 History glipiZIDE XL [Glucotrol Xl] 5 mg PO DAILY 06/03/17 06/03/17 History hydrOXYzine PAMOATE [Vistaril] 25 mg PO BID 06/03/17 06/03/17 History hydrOXYzine PAMOATE [Vistaril] 50 mg PO HS 06/03/17 06/03/17 History rOPINIRole HCL [Requip] 2 mg PO HS 06/03/17 06/03/17 History Allergies Allergy/AdvReac Type Severity Reaction Status Date / Time bacitracin Allergy Rash/Hives Verified 06/03/17 13:26 [From Neosporin ([id number])] bacitracin zinc Allergy Rash/Hives Verified 06/03/17 13:26 [From Neosporin ([id number])] lithium Allergy muscle Verified 06/03/17 13:26 spasms neomycin sulfate Allergy Rash/Hives Verified 06/03/17 13:26 [From Neosporin ([id number])] polymyxin B Allergy Rash/Hives Verified 06/03/17 13:26 [From Neosporin ([id number])] risperidone [From Risperdal] Allergy vision loss Verified 06/03/17 13:26 ketorolac tromethamine AdvReac Nausea & Verified 06/03/17 13:26 [From Toradol] Vomiting meloxicam [From Mobic] AdvReac Nausea & Verified 06/03/17 13:26 Vomiting morphine AdvReac Nausea & Verified 06/03/17 13:26 Vomiting tramadol AdvReac Nausea & Verified 06/03/17 13:26 Vomiting paper tape AdvReac peels skin Uncoded 07/21/15 12:14 Physical Exam Vitals: Vital Signs Temp Pulse Pulse Pulse Resp BP BP 06/05/17 06:04 96.6 F L 76 20 142/77 157/83 06/04/17 23:00 98.3 F 79 20 06/04/17 22:54 74 06/04/17 16:22 06/04/17 15:59 18 06/04/17 15:00 97.1 F L 83 18 166/109 06/04/17 14:59 06/04/17 12:01 84 BP BP BP BP Pulse Ox 06/05/17 06:04 136/78 94 L 06/04/17 23:00 144/76 135/84 125/66 94 L 06/04/17 22:54 125/66 06/04/17 16:22 94 L 06/04/17 15:59 06/04/17 15:00 152/90 165/81 94 L 06/04/17 14:59 96 06/04/17 12:01 Intake and Output 06/04/17 06/05/17 06/05/17 22:59 06:59 14:59 Intake Total 200 100 240 Balance 200 100 240 Intake: Oral 200 100 240 Other: Voiding Method Toilet Toilet # Voids 3 2 Results - Lab Results Most recent lab results Calcium 9.0 mg/dL (8.4-10.2) 06/04/17 03:53 Phosphorus 4.0 mg/dL (2.5-4.5) 06/03/17 15:34 Magnesium 1.8 mg/dL (1.6-2.3) 06/03/17 15:34 06/04/17 03:53 06/05/17 10:20 Assessment and Plan Plan: Assessment: #1. 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 Sodium level was down to 126 yesterday and is up to 129 today. #2. History of bipolar disorder. #3. Dizziness. Orthostatic vital signs negative. MRI of the brain negative. Neurology and psychiatry following. #4. Benign hypertension. Controlled. #5. Diabetes mellitus. Plan: Normal saline was discontinued last night. Continue with 1 L fluid restriction. 20 mg of oral Lasix once today. Repeat electrolytes in the morning. Thank you for the consultation. I will continue to follow the patient with you during her hospital stay.
--- NOTE | 2017-06-05 12:06 | CONS ---
CONSULTATION DATE OF SERVICE: June 05, 2017. REASON FOR CONSULTATION: The patient has history of bipolar versus schizoaffective disorder. Please re-evaluate her psychotropic medication. IDENTIFYING DATA: HISTORY OF PRESENT ILLNESS: The patient is a 57 -year-old female, who is living on her own and she is on social security income due to her mental illness. The patient was brought to the ER on June 03 with multiple medical complaints. Especially the patient stated that she has been passing out at least 5 or 6 times and sometimes she wakes up and she found herself on the floor. The patient stated that she has history of mental illness for at least 10-15 years and she has been stable for 7 years on her current psychotropic medication that includes Zyprexa 20 mg at bedtime and Trileptal 300 mg twice a day. She denied that there is any change in her psychotropic medication. Also, she denied that she has been skipping any doses. The patient stated that she has chronic visual and auditory hallucinations only when she does go to the bathroom"I am hearing my daughter voices and also I do see her hanging in the bathroom." The patient's daughter was removed from her custody 20 years ago by Child Protective Services, and according to the patient, since then she has been having complicated grief as she is missing her daughter. The patient denied having any auditory or visual hallucination outside the bathroom. Also she denied any suicide or homicidal ideation. She denied any feeling of hopeless or helpless. She denied any delusion, thinking, or paranoia. ALLERGY: TO BACTRIM, LITHIUM, NEOMYCIN, POLYMYXIN, RISPERIDONE, MORPHINE, ULTRAM. PAST PSYCHIATRIC HISTORY: According to the patient, she has "many inpatient hospitalizations." First psych hospitalization was in her early 20s. The last hospitalization was 7 years ago. Since then, she has been seen on a regular basis by Dr. Solorio at [facility]. PAST MEDICAL HISTORY: COPD, diabetes, hyperlipidemia, osteoarthritis. Past history of MRSA, chronic back pain status post back surgery. CURRENT HOME MEDICATIONS: Please refer back to her record. LEGAL PROBLEMS: The patient denied any legal problems. FAMILY HISTORY: Of mental illness. The patient denied any mental illness in the family. SOCIAL HISTORY: The patient is living on her own. She is on social security. However, she has a caregiver checking on her on daily basis. Her name is Lary in addition that her niece is living in the same building. MENTAL STATUS EXAMINATION: Patient is overweight, female who is dressed in hospital gown, lying in her hospital bed. She made good eye contact. She was cooperative. There is no psychomotor agitation. Her speech is pressured and loud at times but normal in rhythm and tone. Patient is tangential but there is no loose association. As I mentioned before she stated that she has auditory and visual hallucinations related to missing her daughter but she denied any delusional thinking. Paranoia or suspicious feeling. She denied any sleep or appetite problem. She denied any suicide or homicidal ideation. She is alert and oriented to person, location and month. Stated mood "nervous". Affect is constricted. Insight and judgment are fair. DIAGNOSES: Bipolar disorder versus schizoaffective disorder. PLAN: The patient does not meet criteria for inpatient psychiatric hospitalization. She has been having this chronic visual and auditory hallucination for more than 20 years and it is not affecting her function of liver. I would continue her on her current psychotropic medication and I would refer her back to [facility] to Dr. Solorio. Thank you for this consult. MMODL / IJN: [id number] /
[2017-06-05 12:30] LABS: Glucose,Whole Blood 91 mg/dL (75-99)
--- NOTE | 2017-06-05 14:27 | EEG ---
ELECTROENCEPHALOGRAM REPORT DATE OF SERVICE: 06/04/2017. REASON FOR TESTING: Seizure. CURRENT ANTIEPILEPTIC MEDICATIONS: Trileptal and Lyrica. DESCRIPTION OF THE RECORDING: This EEG was performed using a 21 channel digital electroencephalograph, following international 10-20 system. DESCRIPTION OF THE RECORDING: From the beginning of the tracing, and with patient's eyes closed, the background rhythm was mostly consisting of 8 Hz alpha frequency in the posterior occipital leads. No obvious asymmetry is seen. Photic stimulation was performed with no driving response seen. No pathological waves were elicited. Hyperventilation was not performed. Occasional dysregulation is seen. The patient remains awake throughout the tracing. No obvious epileptiform discharges were seen. Her EKG lead showed a regular rate and rhythm. INTERPRETATION: This awake EEG is abnormal due to presence of occasional dysregulation, which could be consistent with a reduced seizure threshold. No obvious epileptiform discharges were seen. The absence of epileptiform discharges does not rule out the diagnosis of epilepsy, therefore clinical correlation is recommended. MMREAL / KAROLINAN: [id number] /
--- NOTE | 2017-06-05 15:01 | P.PN ---
Subjective Progress Note Date: 06/05/17 Principal diagnosis: Patient is a pleasant 49-year-old female who is being followed by the neurology service for syncopal episodes. Patient has history of COPD, diabetes , hyperlipidemia, spine surgery, bipolar disorder, schizoaffective disorder, and vertigo. Patient states she has been having few episodes where she does not remember falling or getting dizzy but does remember waking up on the floor. Patient does not injure herself during these falls. These episodes are not witnessed. There is no lateralizing weakness or speech difficulty. No dysphagia. No seizure-like activity or postictal state noted. Patient does not have seizure history. Patient had a recent CT of the brain which showed no acute process. Patient had MRI of the brain which was unremarkable. No syncopal episodes since admission. At the time of my evaluation, patient sitting up in bed eating lunch and appears to be in no acute distress. 06/05/2017 Patient is a pleasant 49-year-old female who is being followed by the neurology service for syncopal episodes. Patient states she is much better today and has had no syncopal episodes since admission. Patient's been seen by psychiatry and no changes were made. Patient has been seen by nephrology for hyponatremia. Patient has been up ambulating in the room without difficulty. She denies dizziness or headache. At the time of my evaluation, patient is resting comfortably in bed and appears to be in no acute distress. Objective - Vital Signs Vital signs: Vital Signs Temp 96.6 F L 06/05/17 06:04 Pulse 76 06/05/17 06:04 Resp 20 06/05/17 06:04 BP 136/78 06/05/17 06:04 Pulse Ox 94 L 06/05/17 06:04 Intake & Output 06/04/17 06/05/17 06/05/17 18:59 06:59 18:59 Intake Total 300 240 Balance 300 240 Intake: Oral 300 240 Other: Voiding Method Toilet Toilet Toilet # Voids 1 2 3 - Exam PHYSICAL EXAM: GENERAL APPEARANCE: Patient is a well-developed, female who appears to be in no acute distress. HEENT: Normocephalic, atraumatic, no facial asymmetry is seen. Neck is supple with no masses felt. CARDIOVASCULAR: Regular rate and rhythm. ABDOMEN: Nontender, nondistended. EXTREMITIES: Show no edema or clubbing. NEUROLOGICAL EXAM: Patient is awake, alert, and oriented 3. Speech and language are normal. Strength is full in all 4 extremities. Sensory exam to light touch is normal in all 4 extremities. No facial asymmetry noted on cranial nerve testing. No seizures or tremors noted. - Labs CBC & Chem 7: 06/04/17 03:53 06/05/17 10:20 Labs: Abnormal Lab Results - Last 24 Hours (Table) 06/04/17 06/04/17 06/04/17 Range/Units 17:16 17:30 17:30 Sodium 126 L (137-145) mmol/L POC Glucose (mg/dL) 112 H (75-99) mg/dL Hemoglobin A1c 6.8 H (4.0-6.0) % Osmolality 258 L (280-301) mosm/kg 06/05/17 06/05/17 Range/Units 07:19 10:20 Sodium 129 L (137-145) mmol/L POC Glucose (mg/dL) 133 H (75-99) mg/dL Hemoglobin A1c (4.0-6.0) % Osmolality (280-301) mosm/kg Assessment and Plan Plan: Impression: 1. Recurrent unwitnessed syncope 2. Diabetes mellitus 3. COPD 4. Chronic pain syndrome 5. History of bipolar/schizoaffective disorder Recommendations: Patient has had no syncopal episodes since admission. No lateralizing weakness or neurological deficits. MRI of the brain was unremarkable. EEG showed occasional dysregulation, consistent with reduced seizure threshold. Patient had recent workup in the office. This does not appear to be neurological and I recommend a cardiovascular workup as an outpatient and possibly a tilt table test. Continue neurological checks. Continue medical management. I will continue to follow with you on an as- needed basis. Feel free to call with any questions or concerns. I performed an examination of the patient and discussed the management with the PER DIEM PHYSICAL THERAPIST ASSISTANT. I have reviewed the PER DIEM PHYSICAL THERAPIST ASSISTANT notes and agree with the findings and plan of care.
[2017-06-05 15:05] VITALS: BP 125/73; PULSE 77; RESP 18; TEMP 97.2
--- NOTE | 2017-06-05 15:33 | DS ---
DISCHARGE SUMMARY FINAL DIAGNOSES: 1. Recurrent syncope possibly stress induced. No evidence of cardiac arrhythmia. 2. Hypertension. 3. Chronic obstructive pulmonary disease. 4. Diabetes mellitus type 2. 5. Hyperlipidemia. 6. History of degenerative joint disease. 7. History of recent bronchitis. 8. History of MRSA. 9. History of back surgery. 10.History of section. 11.History of cholecystitis. 12.Bipolar schizoaffective disorder. 13.History of nicotine dependence. DISCHARGE DISPOSITION: Patient is being discharged in stable condition with guarded prognosis. HISTORY OF PRESENT ILLNESS: This 57-year-old woman with a past medical history of multiple medical problems was admitted with recurrent syncope. Patient has been monitor closely. There is no arrhythmia. The basic neurovascular workup including MRI is also negative. Psychiatry saw the patient and recommended outpatient followup. On exam, vitals are stable. CARDIOVASCULAR: S1, S2. ABDOMEN: Soft. NERVOUS SYSTEM: No focal deficit. The sodium is [address] Hayes recommended a short course of diuretics at this time. DISCHARGE ADVICE AND MEDICATIONS: 1. Diet is cardiac. 2. Activities limited until followup. 3. Follow up with Dr. Angela Ag in 2 to [address] Hayes as well as psychiatry as advised. MEDICATIONS: 1. Tylenol 650 q.6h p.r.n. 2. Aspirin 81 mg q.h.s. 3. Lasix [address] daily per Dr. Hayes. 4. Lopid 600 mg p.o. b.i.d. 5. Glucotrol XL 5 mg p.o. daily. 6. Vistaril 25 mg p.o. b.i.d. 7. Vistaril of 50 mg q.h.s. 8. DuoNeb q.i.d. and p.r.n. 9. Zestril 5 mg p.o. daily. 10.Antivert 25 mg p.o. b.i.d. p.r.n. 11.Glucophage 500 mg p.o. b.i.d. 12.Metoprolol 12.5 mg p.o. b.i.d. 13.Habitrol 14 daily. 14.Zyprexa 20 mg p.o. daily. 15.Zofran 4 mg q.6h. 16.Trileptal 300 mg p.o. b.i.d. 17.Percocet 1 tab t.i.d. p.r.n. 18.Lyrica 150 mg p.o. b.i.d. 19.Requip 2 mg q.h.s. 20.Zanaflex 4 mg p.o. t.i.d. p.r.n. Once again, the patient is discharged in stable condition with guarded prognosis. MMODL / IJN: [id number] /
[2017-06-06] MEDS ORDERED: FUROSEMIDE 20 MG TAB PO SCH (09:00)
== END 2017-06-05 15:48 | disposition home or self-care (01) ==
LOC: 4MS4W 12:04
PROVIDERS: ADMIT Hospitalist; ATTEND Hospitalist
DX: R55 Syncope and collapse (principal); I10 Essential (primary) hypertension; J44.9 Chronic obstructive pulmonary disease, unspecified; E11.9 Type 2 diabetes mellitus without complications; E78.5 Hyperlipidemia, unspecified; M19.90 Unspecified osteoarthritis, unspecified site; Z86.14 Personal history of Methicillin resistant Staphylococcus aureus infection; F31.9 Bipolar disorder, unspecified; F25.0 Schizoaffective disorder, bipolar type; Z90.49 Acquired absence of other specified parts of digestive tract; E22.2 Syndrome of inappropriate secretion of antidiuretic hormone; R42 Dizziness and giddiness; R53.1 Weakness; E66.3 Overweight; M54.9 Dorsalgia, unspecified; G89.4 Chronic pain syndrome; Z79.84 Long term (current) use of oral hypoglycemic drugs; Z79.899 Other long term (current) drug therapy; Z79.82 Long term (current) use of aspirin; Z80.9 Family history of malignant neoplasm, unspecified; Z83.2 Family history of diseases of the blood and blood-forming organs and certain disorders involving the immune mechanism; F17.210 Nicotine dependence, cigarettes, uncomplicated; Z88.1 Allergy status to other antibiotic agents; Z88.5 Allergy status to narcotic agent; Z88.8 Allergy status to other drugs, medicaments and biological substances; Z91.048 Other nonmedicinal substance allergy status; T42.1X5A Adverse effect of iminostilbenes, initial encounter; Z68.33 Body mass index [BMI] 33.0-33.9, adult
CPT/HCPCS: 96360; 96361; 96372 ×3; 94640; 95819; 93306; 93005; 84300; 83930; 80053; 80048; 84443; 83735; 84100; 84295 ×2; 84484 ×2; 85025 ×2; 81003; 83935; 83036; 71045; 93880; 70551; G0379; G0378 ×3; J1644 ×3

== ENCOUNTER → 2017-09-14 | Outpatient (CLI) | payer OTHER ==
[2017-09-14 07:26] LABS: Basophils # (A) 0.1 k/uL (0-0.2); Basophils % (A) 1 %; Eosinophils # (A) 0.8 k/uL (0-0.7); Eosinophils % (A) 9 %; HCT 38.3 % (34.0-46.0); HGB 12.6 gm/dL (11.4-16.0); Lymphocytes # (A) 2.2 k/uL (1.0-4.8); Lymphocytes % (A) 26 %; MCV 90.9 fL (80.0-100.0); Mean Platelet Volume 7.5; Monocytes # (A) 0.6 k/uL (0-1.0); Monocytes % (A) 7 %; Neutrophils # (A) 4.8 k/uL (1.3-7.7); Neutrophils % (A) 56 %; Platelet Count 333 k/uL (150-450); RBC 4.21 m/uL (3.80-5.40); RDW 13.6 % (11.5-15.5); WBC 8.6 k/uL (3.8-10.6)
[2017-09-14 12:15] LABS: ALT 31 U/L (9-52); AST 22 U/L (14-36); Albumin 3.5 g/dL (3.5-5.0); Alkaline Phosphatase 71 U/L (38-126); Anion Gap 12 mmol/L; Blood Urea Nitrogen 3 mg/dL (7-17); Calcium 8.9 mg/dL (8.4-10.2); Carbon Dioxide 28 mmol/L (22-30); Chloride 99 mmol/L (98-107); Glucose 302 mg/dL (74-99); Potassium 3.1 mmol/L (3.5-5.1); Sodium 139 mmol/L (137-145); Total Bilirubin 0.1 mg/dL (0.2-1.3); Total Protein 6.1 g/dL (6.3-8.2)
[2017-09-14 12:33] LABS: T4, Free (Free Thyroxine) 1.31 ng/dL (0.78-2.19)
[2017-09-14 17:08] LABS: Iron Saturation 18.42 (12.00-45.00)
[2017-09-14 17:18] LABS: Vitamin D 25 Hydroxy 16.9 ng/mL (30.0-100.0)
== END | disposition home or self-care (01) ==
LOC: LABWHC1 07:12
PROVIDERS: ATTEND Nurse Practitioner Acute Care
DX: R25.2 Cramp and spasm (principal); D64.9 Anemia, unspecified
CPT/HCPCS: 36415; 80053; 82306; 82607; 82728; 83540; 83550; 84207; 84439; 84443; 84466; 84481; 85025

== ENCOUNTER → 2019-02-20 | Outpatient (CLI) | payer OTHER ==
--- NOTE | 2019-02-20 16:15 | CT ---
EXAMINATION TYPE: CT chest wo con DATE OF EXAM: 02/20/2019 COMPARISON: Chest x-ray dated 06/03/2017 HISTORY: Cough with prior rib fractures and recent pneumonia per patient history. CT DLP: 577 mGycm. Automated Exposure Control for Dose Reduction was Utilized. TECHNIQUE: CT scan of the thorax is performed without IV contrast. FINDINGS: LUNGS: There is extensive spray artifact from a right humeral arthroplasty limiting evaluation of the proximal surrounding structures and upper neck. Mild centrilobular emphysematous changes are seen of the lungs. Within the interlobar fissure there i s a 6 mm nodular density, retrospectively stable from the prior of 05/06/2017. This likely represents a small intrafissural lymph node and is typically benign. Confirmatory CT could be performed in 12 mo nths. If stable at that time this could be considered benign. The lungs are grossly clear, there is n o concerning parenchymal mass or nodule identified. There is no pleural effusion or pneumothorax se en. The tracheobronchial tree is patent. MEDIASTINUM: Lack of IV contrast is noted to limit evaluation for mediastinal and especially hilar ad enopathy. There are no definitive greater than 1 cm hilar or mediastinal lymph nodes. No cardiomega ly or pericardial effusion is seen. OTHER: Hepatic parenchyma is diffusely hypoattenuated in comparison to that of the spleen, most comm only seen in hepatic steatosis. This finding limits evaluation for hepatic masses. Liver is incomplet irving visualized. Attenuation is patchy with probable areas of geographic focal fatty sparing. No intra hepatic biliary ductal dilatation. Benign approximately 1.3 cm left adrenal gland adenoma. Incidental splenule. Advanced atherosclerosis of the upper abdominal aorta. There are old healed callused fracture deformities of left ribs 6 through 11. There is a very mild co mpression deformity of the T5 vertebral body with vertebral body height loss of less than 20%. This w as present on the prior of 2017 is chronic. Mild multilevel degenerative change of the thoracic spine . IMPRESSION: 1. Old healed callused rib fracture deformities of ribs 6 through 11 on the left. 2. 6 mm nodular density in the left interlobar fissure, most commonly a benign intrafissural lymph no de. This is retrospectively stable from the prior. CT thorax is recommended in 12 months to establish long-term stability. If stable at that time this could be considered benign. 3. Chronic mild compression deformity of T5. 4. Incidentally noted hepatic steatosis with probable geographic areas of focal fatty sparing an inci dentally noted benign 1.3 cm with a bridge adrenal gland adenoma. 5. Mild centrilobular emphysematous changes of the lungs.
== END | disposition home or self-care (01) ==
LOC: RADCTMAIN 14:36
PROVIDERS: ATTEND Family Medicine
DX: R91.1 Solitary pulmonary nodule (principal); J43.9 Emphysema, unspecified; Z09 Encounter for follow-up examination after completed treatment for conditions other than malignant neoplasm; Z72.0 Tobacco use
CPT/HCPCS: 71250

== ENCOUNTER → 2019-06-19 | Outpatient (CLI) | payer OTHER ==
--- NOTE | 2019-06-19 16:57 | US ---
EXAMINATION TYPE: US venous doppler duplex UE LT DATE OF EXAM: 06/19/2019 COMPARISON: NONE CLINICAL HISTORY: L03.119 Cellulitis of hand. Left hand swelling SIDE PERFORMED: Left Left Arm: Appears negative for DVT Appears positive for non occlusive thrombus seen within superficial cephalic vein at antecubital fo ssa IMPRESSION: There is no evidence of deep vein thrombosis. There is superficial chronic thrombus at the elbow in t he cephalic vein.
== END | disposition home or self-care (01) ==
LOC: RADUSWWP 16:02
PROVIDERS: ATTEND Family Medicine
DX: I82.712 Chronic embolism and thrombosis of superficial veins of left upper extremity (principal)

== ENCOUNTER → 2020-05-15 | Outpatient (CLI) | payer OTHER ==
--- NOTE | 2020-05-15 16:10 | CT ---
EXAMINATION TYPE: CT lumbar spine wo con DATE OF EXAM: 05/15/2020 3:26 PM COMPARISON: MRI lumbar spine October 30, 2016. HISTORY: Lumbar pain, bilateral sciatica. Hx lumbar fusion CT DLP: 964 mGycm Automated exposure control for dose reduction was used. Unenhanced CT of the lumbar spine was performed. Bone and soft tissue window settings are submitted as well as coronal and sagittal reconstructions. There are 5 lumbar type vertebra are redemonstrated. Lumbar spine redemonstrates satisfactory alignme nt. Posterior interpedicular rods and screws transfix L5-S1 level. Artificial disc material L5-S1 lev el redemonstrated. There is now moderate to severe disc space narrowing with vacuum disc phenomenon a long with [id number]-wn-[id number] anterior spurring and endplate sclerosis L3-L4 level that has progressed from 2017 MRI. Prominent Schmorl node superior L1 endplate. Vertebral body heights otherwise preserv ed. Axial images at T12-L1 levels show mild broad disc bulge and [id number]-nu-orqyahwh facet degenerative tran ges bilaterally. Patent spinal canal. Patent bilateral neural foramina. Axial images at L1-L2 level shows mild to moderate broad disc bulge and mild facet degenerative kemp es bilaterally. There is mild bilateral inferior neural foraminal narrowing. Effacement anterior thec al sac redemonstrated on axial image 28. Axial images at L2-L3 level show moderate broad disc bulge effacing anterior thecal sac on image 38. Patent bilateral neural foramina. No significant interval change. Axial images at L3-L4 level show worsening spur disc complex effacing anterior thecal sac and mild-to -moderate facet arthropathy bilaterally. There is moderate bilateral neural foraminal narrowing. Inte rval progression noted. Axial images at L4-L5 level is artifact from posterior fusion hardware. There is moderate broad-based posterior disc protrusion effacing anterior thecal sac. There is mild to moderate facet degenerative change and ligamentum flavum hypertrophy effacing posterior lateral thecal sac on image 57. Interval progression felt present. Mild to moderate bilateral neural foraminal narrowing is noted. Axial images at L5-S1 level show artifact from surgical change. There is moderate facet arthropathy. Spinal canal is preserved. The bilateral neural foramina are patent. Visualized liver is hypodense consistent with diffuse fatty infiltration. Moderate calcified plaque o f the aorta extends into branch vessels. IMPRESSION: Postsurgical change L5-S1 level redemonstrated. Stable and satisfactory alignment. Worsen ing degenerative changes L3-L4 and L4-L5 levels noted as detailed above.
== END | disposition home or self-care (01) ==
LOC: RADCTMAIN 14:53
PROVIDERS: ATTEND Orthopaedic Surgery
DX: M47.816 Spondylosis without myelopathy or radiculopathy, lumbar region (principal); G89.29 Other chronic pain; Z98.890 Other specified postprocedural states
CPT/HCPCS: 72131

== ENCOUNTER → 2020-10-27 | Outpatient (CLI) | payer OTHER ==
[2020-10-27 13:48] LABS: African American GFR (CKD) >90 (>60 ml/min/1.73 sqM); Blood Urea Nitrogen 9 mg/dL (7-17); Non-African American GFR(CKD) >90 (>60 ml/min/1.73 sqM)
--- NOTE | 2020-10-27 18:22 | CT ---
EXAMINATION TYPE: CT iac w con DATE OF EXAM: 10/27/2020 COMPARISON: MRI brain 06/03/2017 HISTORY: lesion follow up, reported right ear lesion CT DLP: 150 mGycm Automated exposure control for dose reduction was used. Contrast: None Technique: Axial images 1 mm thick sections. Reconstructed images in the coronal plane. FINDINGS: External auditory canals appear normal. Middle ears appear clear. Internal auditory canals are normal without expansion or erosion. Cerebellopontine angles are normal. Suprasellar cistern is unremarkabl e. Incus and malleus are normal. Semicircular canals appear normal. Cochlea are normal. Scutum are clif l. Adnexa are clear. Paranasal sinuses and mastoid air cells within the field of view are clear. Mastoid air cells are pne umatized bilaterally. IMPRESSION: 1. NO SUSPICIOUS ACUTE CHANGES INTERNAL AUDITORY CANAL STUDY
--- NOTE | 2020-10-27 18:28 | CT ---
EXAMINATION TYPE: CT abdomen wo/w con DATE OF EXAM: 10/27/2020 COMPARISON: INDICATION: Back pain DLP: 2073.1 mGycm, Automated exposure control for dose reduction was used. CONTRAST: 100 mL of Isovue 300. Study performed with Oral Contrast TECHNIQUE: Axial images were obtained from above the diaphragm to the pubic rami in the axial plane a t 5 mm thick sections. Reconstructed images are reviewed on the computer in the coronal plane. FINDINGS: Limited CT sections are obtained the lung bases. The lung bases are clear. CT ABDOMEN: Liver: Normal Spleen: Normal Pancreas: Normal Adrenal glands: Left adrenal gland is a 1.2 cm hypodense lesion. Right adrenal gland appears normal. Left adrenal gland: Precontrast Hounsfield unit measurement is -12, postcontrast is 52 Hounsfield uni t, delayed images 8 Hounsfield unit. Washout is compatible with an adrenal adenoma. Gallbladder: Not identified. Correlate with surgical history Kidneys: No masses are evident. No hydronephrosis is present. No cysts are present. Delayed images were obtained through the kidneys, which remain unremarkable. Aorta: Vascular calcification is within the aorta. Inferior vena cava: Normal. Some mild bowel wall thickening at the hepatic flexure may be present. Correlate for mild colitis. Th ere is limited oral contrast. Nondistended loops of bowel loops of bowel lacking oral contrast Limite d evaluation. IMPRESSIONS: 1. Small left adrenal lesion compatible with an adrenal adenoma.
== END | disposition home or self-care (01) ==
LOC: RADCTMAIN 12:53
PROVIDERS: ATTEND Family Medicine
DX: H93.8X1 Other specified disorders of right ear (principal)
CPT/HCPCS: 82565; 84520; 70481; 74170; 36415; Q9967

== ENCOUNTER → 2020-12-19 | Outpatient (CLI) | payer OTHER | END | disposition home or self-care (01) | LOC: LABWHC1 08:11 | PROVIDERS: ATTEND Neurological Surgery | DX: Z20.822 Contact with and (suspected) exposure to COVID-19 (principal); M96.1 Postlaminectomy syndrome, not elsewhere classified; M51.36 Other intervertebral disc degeneration, lumbar region | CPT/HCPCS: U0003; C9803; U0005 ==

== ENCOUNTER 2021-02-27 16:45 | Emergency (ER) | payer OTHER ==
--- NOTE | 2021-02-27 18:24 | ED ---
General Adult HPI - General Chief complaint: Upper Respiratory Infection Stated complaint: Covid +, wants Bam Time Seen by Provider: 02/27/21 18:07 Source: patient Mode of arrival: ambulatory Limitations: no limitations - History of Present Illness Initial comments: Dictation was produced using [employer] dictation software. please excuse any grammatical, word or spelling errors. Chief Complaint: Patient is 61-year-old female presents to the emergency Department for PCPs office for monoclonal antibodies. History of Present Illness: [place]-year-old female she is had URI symptoms for the last 2 days. She went to her PCPs office for evaluation. She was tested for cold it. She was sent here for monoclonal antibodies. Patient states she is having muscle aches, nasal congestion and dry cough. The ROS documented in this emergency department record has been reviewed and confirmed by me. Those systems with pertinent positive or negative responses have been documented in the HPI. All other systems are other negative and/or noncontributory. PHYSICAL EXAM: General Impression: Alert and oriented x3, not in acute distress HEENT: Normocephalic atraumatic, extra-ocular movements intact, pupils equal and reactive to light bilaterally, mucous membranes moist. Cardiovascular: Heart regular rate and rhythm Chest: Able to complete full sentences, no retractions, no tachypnea Musculoskeletal: Pulses present and equal in all extremities, no peripheral edema Motor: no focal deficits noted Neurological: CN II-XII grossly intact, no focal motor or sensory deficits noted Skin: Intact with no visualized rashes Psych: Normal affect and mood ED course: 61-year-old well-appearing female presents to the emergency department from PCPs office for monoclonal antibodies patient tested positive for COVID-19 today. She's been symptomatic for 2 days. She is vaccinated. Vital signs upon arrival are within acceptable limits. Patient's not hypoxic. Patient meets criteria for monoclonal antibody infusion. Patient given infusion. She is observed and discharged after a short ER observation post infusion. - Related Data Home Medications Medication Instructions Recorded Confirmed Aspirin 81 mg PO HS 07/21/15 06/03/17 Meclizine [Antivert] 25 mg PO BID PRN 07/21/15 06/03/17 OLANZapine [ZyPREXA] 20 mg PO DAILY 07/21/15 06/03/17 OXcarbazepine [Trileptal] 300 mg PO BID 07/21/15 06/03/17 metFORMIN HCL [Glucophage] 500 mg PO BID 07/21/15 06/03/17 oxyCODONE-APAP 7.5-325MG [Percocet 1 tab PO TID PRN 07/21/15 06/03/17 7.5-325 mg] tiZANidine [Zanaflex] 4 mg PO TID PRN 07/21/15 06/03/17 Gemfibrozil [Lopid] 600 mg PO AC-BID 06/03/17 06/03/17 Ipratropium-Albuterol Nebulize 3 ml INHALATION RT-TID PRN 06/03/17 06/03/17 [Duoneb 0.5 mg-3 mg/3 ml Soln] Ondansetron HCl [Zofran] 4 mg PO Q6HR PRN 06/03/17 06/03/17 Pregabalin [Lyrica] 150 mg PO BID 06/03/17 06/03/17 glipiZIDE XL [Glucotrol XL] 5 mg PO DAILY 06/03/17 06/03/17 hydrOXYzine pamoate [Vistaril] 25 mg PO BID 06/03/17 06/03/17 hydrOXYzine pamoate [Vistaril] 50 mg PO HS 06/03/17 06/03/17 lisinopriL [Zestril] 5 mg PO DAILY 06/03/17 06/03/17 rOPINIRole HCL [Requip] 2 mg PO HS 06/03/17 06/03/17 Previous Rx's Medication Instructions Recorded Acetaminophen Tab [Tylenol] 650 mg PO Q6HR PRN tab 06/05/17 Furosemide [Lasix] 20 mg PO DAILY #20 tab 06/05/17 Metoprolol Tartrate [Lopressor] 12.5 mg PO BID #60 tab 06/05/17 Nicotine 14Mg/24Hr Patch [Habitrol] 1 patch TRANSDERM DAILY #30 patch 06/05/17 Allergies Allergy/AdvReac Type Severity Reaction Status Date / Time bacitracin Allergy Rash/Hives Verified 02/27/21 19:33 [From Neosporin ([id number])] bacitracin zinc Allergy Rash/Hives Verified 02/27/21 19:33 [From Neosporin ([id number])] lithium Allergy muscle Verified 02/27/21 19:33 spasms neomycin sulfate Allergy Rash/Hives Verified 02/27/21 19:33 [From Neosporin ([id number])] polymyxin B Allergy Rash/Hives Verified 02/27/21 19:33 [From Neosporin ([id number])] risperidone [From Risperdal] Allergy vision loss Verified 02/27/21 19:33 ketorolac tromethamine AdvReac Nausea & Verified 02/27/21 19:33 [From Toradol] Vomiting meloxicam [From Mobic] AdvReac Nausea & Verified 02/27/21 19:33 Vomiting morphine AdvReac Nausea & Verified 02/27/21 19:33 Vomiting tramadol AdvReac Nausea & Verified 02/27/21 19:33 Vomiting paper tape AdvReac peels skin Uncoded 02/27/21 17:45 Review of Systems ROS Statement: Those systems with pertinent positive or pertinent negative responses have been documented in the HPI. ROS Other: All systems not noted in ROS Statement are negative. Past Medical History Past Medical History: COPD, Diabetes Mellitus, Hyperlipidemia, Musculoskeletal Disorder, Osteoarthritis (OA) Additional Past Medical History / Comment(s): recent bronchitis History of Any Multi-Drug Resistant Organisms: MRSA Date of last positivie culture/infection: 2013 MDRO Source:: right thigh Past Surgical History: Appendectomy, Back Surgery, Section, Cholecystectomy, Joint Replacement, Orthopedic Surgery, Tubal Ligation Additional Past Surgical History / Comment(s): both knees replaced, right shoulder replaced, left hip, left shoulder rotator cuff repair, carapal tunnel surg., tarsal tunnel surg both feet Past Anesthesia/Blood Transfusion Reactions: No Reported Reaction Past Psychological History: Bipolar, Schizoaffective Disorder Smoking Status: Former smoker Past Alcohol Use History: None Reported Past Drug Use History: None Reported - Past Family History Sister(s) Family Medical History: Cancer, Deep Vein Thrombosis (DVT) General Exam Limitations: no limitations Course Vital Signs 02/27/21 17:42 Temperature 98.6 F Pulse Rate 98 Respiratory 22 Rate Blood Pressure 151/74 O2 Sat by Pulse 97 Oximetry Disposition Clinical Impression: COVID-19 Disposition: HOME SELF-CARE Condition: Good Instructions (If sedation given, give patient instructions): Coronavirus Disease 2019 (COVID-19) Is patient prescribed a controlled substance at d/c from ED?: No Referrals: Angela Ag MD [Primary Care Provider] - 1-2 days
[2021-02-27] MEDS ORDERED: SODIUM CHLORIDE 0.9% 50 ML IVPB ONE (19:45)
[2021-02-27] MEDS ORDERED: BAMLANIVIMAB (EUA) 700 MG, ETESEVIMAB (EUA) 1,400 MG in SODIUM CHLORIDE 0.9% 50 ML IVPB ONE (19:45)
[2021-02-27 21:26] VITALS: BP 139/77; PULSE 93; RESP 16; TEMP 98.2
== END 2021-02-27 21:35 | disposition home or self-care (01) ==
LOC: EC 16:45
DX: U07.1 COVID-19 (principal); J44.9 Chronic obstructive pulmonary disease, unspecified; E11.9 Type 2 diabetes mellitus without complications; I10 Essential (primary) hypertension; M19.90 Unspecified osteoarthritis, unspecified site; F31.9 Bipolar disorder, unspecified; Z79.82 Long term (current) use of aspirin; Z79.84 Long term (current) use of oral hypoglycemic drugs; Z88.1 Allergy status to other antibiotic agents; Z88.5 Allergy status to narcotic agent; Z90.49 Acquired absence of other specified parts of digestive tract; Z98.51 Tubal ligation status; Z96.653 Presence of artificial knee joint, bilateral; Z87.891 Personal history of nicotine dependence
CPT/HCPCS: 99283; 96365; J3490

== ENCOUNTER → 2021-06-16 | Outpatient (CLI) | payer OTHER | END | disposition home or self-care (01) | LOC: LABWHC1 07:16 | PROVIDERS: ATTEND Orthopaedic Surgery | DX: T84.84XA Pain due to internal orthopedic prosthetic devices, implants and grafts, initial encounter (principal); Y79.2 Prosthetic and other implants, materials and accessory orthopedic devices associated with adverse incidents | CPT/HCPCS: 36415; 85379; 85652; 86140 ==

== ENCOUNTER → 2021-07-08 | Outpatient (CLI) | payer OTHER ==
--- NOTE | 2021-07-08 12:08 | NM ---
EXAMINATION TYPE: NM bone 3 phase DATE OF EXAM: 07/08/2021 COMPARISON: CT abdomen 10/27/2020, CT lumbar spine 05/15/2020, no recent plain film supplied for correla tion HISTORY: Left hip pain Triple phase bone scintigraphy was performed following the injection of 23.0 mCi Tc 99m MDP. Immedia te images and 3.5 hours post injection images acquired. Images limited to the level of the pelvis. FINDINGS: Patient is post left hip arthroplasty. Posterior fusion changes are noted at the lumbosacra l junction causing artifact on prior CT. Immediate flow images show symmetric appearance to the hips. Photopenic area at the left hip correspo nds to patient's left hip arthroplasty. No abnormal increased uptake present due to loosening or infe ction is evident. Uptake in the lumbar spine corresponds to the marked degenerative disc change noted at L3-4. IMPRESSION: No scintigraphic evidence of hip loosening or infection. Degenerative disc changes in the lumbar spin e. Postop changes.
== END | disposition home or self-care (01) ==
LOC: RADNMMAIN 07:12
PROVIDERS: ATTEND Orthopaedic Surgery
DX: M51.36 Other intervertebral disc degeneration, lumbar region (principal); M25.552 Pain in left hip
CPT/HCPCS: 78315; A9503

== ENCOUNTER 2021-07-09 08:44 | Day surgery (SDC) | payer OTHER ==
[2021-07-09 09:49] VITALS: RESP 18
[2021-07-09 09:56] LABS: Glucose,Whole Blood 171 mg/dL (75-99)
[2021-07-09 11:27] VITALS: BP 134/74; PULSE 89
--- NOTE | 2021-07-09 12:53 | US ---
EXAMINATION TYPE: US guided aspiration left hip, major joint DATE OF EXAM: 07/09/2021 Comparison: No radiographic correlation available. Also, three-phase bone scan 07/08/2021 Clinical History: 61 year-old female with history of total left hip replacement in 2013. M25.552 PAIN IN LEFT HIP Procedure: 1. Ultrasound of the left hip 2. Percutaneous aspiration prosthetic left hip joint Technique: The procedure, risks, and alternatives, were discussed with the patient, who requested carla t we proceed. The consent form was signed, and teach-back occurred. The site/side of the procedure wa s marked with a line with participation by the patient. The accompanying paperwork was verified for c onsistency. A directed history and physical exam was performed prior to the procedure. Medication rec onciliation was performed by ancillary personnel. A critical pause was performed with assisting willian posey just prior to the procedure and the patient's identity was confirmed using 2 identifiers. Imagin g guidance was utilized to select the precise skin entry point just prior to the procedure. The left hip was prepped and draped in the usual sterile fashion and local 1% lidocaine anesthesia wa s instilled. Under ultrasound guidance, an 18 gauge spinal needle was introduced into the prosthetic right hip joint with tip placed at the prosthetic head neck junction. A small to moderate joint effus ion is noted. Ultrasound confirmed the position of the needle tip. Aspiration yielded a total of 8 mL opaque yellow, slightly thick fluid which was capped, labeled, and sent for the requested laboratory analysis. The needle was removed, hemostasis obtained, and a dressing placed. The patient tolerated the procedu re well. There were no immediate complications. After the procedure, the patient's condition was unchanged. Es timated blood loss was minimal. The patient was instructed on routine postprocedure precautions. Patient given instructions to pay close attention in protecting the area from contamination especiall y for the next 2 days. IMPRESSION: Successful ultrasound guided prosthetic left hip joint aspiration yielding 8 mL's of opaque yellow fl uid.
[2021-07-10 00:52] LABS: Appearance,BF Hazy
== END 2021-07-09 11:10 | disposition home or self-care (01) ==
LOC: RADPROMAIN 08:44
PROVIDERS: ATTEND Orthopaedic Surgery
DX: T84.84XA Pain due to internal orthopedic prosthetic devices, implants and grafts, initial encounter (principal); M25.452 Effusion, left hip; M25.552 Pain in left hip; J98.4 Other disorders of lung; I10 Essential (primary) hypertension; E11.9 Type 2 diabetes mellitus without complications; E78.5 Hyperlipidemia, unspecified; Z86.14 Personal history of Methicillin resistant Staphylococcus aureus infection; F17.210 Nicotine dependence, cigarettes, uncomplicated; Z83.3 Family history of diabetes mellitus; Z79.84 Long term (current) use of oral hypoglycemic drugs; Z79.82 Long term (current) use of aspirin; Z79.899 Other long term (current) drug therapy; F32.A Depression, unspecified
CPT/HCPCS: 20611; 87070; 87075; 87102; 87205; 89050

== ENCOUNTER 2021-09-15 12:30 | Day surgery (SDC) | payer OTHER ==
[2021-09-15 12:47] VITALS: TEMP 97.2
[2021-09-15 14:05] VITALS: RESP 16
--- NOTE | 2021-09-15 14:05 | US ---
EXAM: US guided asp/inj major joint DATE OF EXAM: 09/15/2021 1:57 PM Clinical History: 61 year-old female with history of total left hip replacement in 2014. Procedure: 1. Ultrasound of the left hip 2. Percutaneous aspiration prosthetic left hip joint Technique: The procedure, risks, and alternatives, were discussed with the patient, who requested carla t we proceed. The consent form was signed, and teach- back occurred. The site/side of the procedure w as marked with a line with participation by the patient. The accompanying paperwork was verified for consistency. A directed history and physical exam was performed prior to the procedure. Medication re conciliation was performed by ancillary personnel. A critical pause was performed with assisting ford cadena just prior to the procedure and the patient's identity was confirmed using 2 identifiers. Imagi ng guidance was utilized to select the precise skin entry point just prior to the procedure. The left hip was prepped and draped in the usual sterile fashion and local 1% lidocaine anesthesia wa s instilled. Under ultrasound guidance, an 18 gauge spinal needle was introduced into the prosthetic right hip joint with tip placed at the prosthetic head neck junction. A small joint effusion is note d. Ultrasound confirmed the position of the needle tip. Aspiration yielded a total of 8 mL opaque yel low, slightly thick fluid which was capped, labeled, and sent for the requested laboratory analysis. The needle was removed, hemostasis obtained, and a dressing placed. The patient tolerated the procedu re well. There were no immediate complications. After the procedure, the patient's condition was unch anged. Estimated blood loss was minimal. The patient was instructed on routine postprocedure precauti ons. Patient given instructions to pay close attention in protecting the area from contamination especiall y for the next 2 days. IMPRESSION: Successful ultrasound guided prosthetic left hip joint aspiration yielding 8 mL's of opaque somewhat cloudy yellow serous fluid.
[2021-09-15 14:06] VITALS: BP 130/57; PULSE 82
[2021-09-15 20:08] LABS: Appearance,BF Cloudy; Color,BF Yellow
[2021-09-21 08:45] LABS: Nucleated Cells, Body Fluid 1008 /uL; RBC, Body Fluid 72 /uL
[2021-09-21 08:47] LABS: Mononuclear WBC,Body Fluid 89 %; Polynuclear WBC,Body Fluid 11 %
== END 2021-09-15 13:50 | disposition home or self-care (01) ==
LOC: RADPROMAIN 12:30
PROVIDERS: ATTEND Orthopaedic Surgery
DX: T84.84XA Pain due to internal orthopedic prosthetic devices, implants and grafts, initial encounter (principal); T84.022A Instability of internal right knee prosthesis, initial encounter; T84.023A Instability of internal left knee prosthesis, initial encounter
CPT/HCPCS: 20611; 87070; 87075; 87102; 87205; 89050

== ENCOUNTER → 2021-09-15 | Outpatient (CLI) | payer OTHER | END | disposition home or self-care (01) | LOC: LABWHC1 09:06 | PROVIDERS: ATTEND Orthopaedic Surgery | DX: T84.84XD Pain due to internal orthopedic prosthetic devices, implants and grafts, subsequent encounter (principal); T84.022D Instability of internal right knee prosthesis, subsequent encounter; T84.023D Instability of internal left knee prosthesis, subsequent encounter; Y79.2 Prosthetic and other implants, materials and accessory orthopedic devices associated with adverse incidents | CPT/HCPCS: 36415; 85652; 86140 ==

== ENCOUNTER → 2022-05-10 | Outpatient (CLI) | payer OTHER ==
[2022-05-10 09:06] LABS: INR 0.9 (<1.2); Partial Thromboplastin Time 24.1 sec (22.0-30.0); Prothrombin Time 9.8 sec (9.0-12.0)
[2022-05-10 11:00] LABS: HCT 39.1 % (37.2-46.3); MCH 29.7 pg (27.0-32.0); MCHC 33.2 g/dL (32.0-37.0); MCV 89.5 fL (80.0-97.0); Mean Platelet Volume 10.9 fL (9.5-12.2); NRBC Per 100 WBC 0 /100 WBCS (0.0-0.0); Platelet Count 338 X 10*3/uL (140-440); RBC 4.37 X 10*6/uL (4.10-5.20); RDW 12.5 % (11.5-14.5); WBC 8.49 X 10*3/uL (4.50-10.00)
[2022-05-10 11:06] LABS: Appearance,Urine Clear (Clear); Bilirubin,Urine Negative (Negative); Blood,Urine Negative (Negative); Color,Urine Yellow (Yellow); Ketones,Urine Negative (Negative); Nitrite,Urine Negative (Negative); Specific Gravity,Urine 1.008 (1.001-1.030); Urobilinogen,Urine 0.2 (0.2,1.0)
[2022-05-10 11:09] LABS: African American GFR (CKD) 106.9 (60.0-200.0); Albumin 4.4 g/dL (3.8-4.9); Albumin/Globulin Ratio 1.52 (1.60-3.17); Anion Gap 9.9 mmol/L (10.00-18.00); BUN/Creat Ratio 12.86 Ratio (12.00-20.00); Calcium 9.6 mg/dL (8.7-10.3); Carbon Dioxide 28.1 mmol/L (20.0-27.5); Globulin 2.9 g/dL (1.6-3.3); Non-African American GFR(CKD) 92.2 (60.0-200.0); Total Bilirubin 0.2 mg/dL (0.30-1.20); Total Protein 7.3 g/dL (6.2-8.2)
[2022-05-10 11:16] LABS: Bacteria,Urine None Seen /HPF (None Seen)
== END | disposition home or self-care (01) ==
LOC: LABPAT 07:15
PROVIDERS: ATTEND Orthopaedic Surgery
DX: Z01.812 Encounter for preprocedural laboratory examination (principal)
CPT/HCPCS: 36415; 80053; 81001; 85027; 85610; 85730; 87070; 93005

== ENCOUNTER → 2022-07-06 | Outpatient (CLI) | payer OTHER ==
[2022-07-06 09:06] LABS: Partial Thromboplastin Time 23.8 sec (22.0-30.0); Prothrombin Time 10.3 sec (9.0-12.0)
[2022-07-06 10:37] LABS: HCT 42.3 % (37.2-46.3); HGB 14.2 g/dL (12.0-15.0); MCH 30.3 pg (27.0-32.0); MCHC 33.6 g/dL (32.0-37.0); MCV 90.2 fL (80.0-97.0); Mean Platelet Volume 10.6 fL (9.5-12.2); NRBC Per 100 WBC 0 /100 WBCS (0.0-0.0); Platelet Count 319 X 10*3/uL (140-440); RBC 4.69 X 10*6/uL (4.10-5.20); RDW 12.6 % (11.5-14.5); WBC 8.95 X 10*3/uL (4.50-10.00)
[2022-07-06 11:19] LABS: African American GFR (CKD) 106.1 (60.0-200.0); Albumin 4.2 g/dL (3.8-4.9); Albumin/Globulin Ratio 1.33 (1.60-3.17); Anion Gap 9.4 mmol/L (10.00-18.00); BUN/Creat Ratio 8.98 Ratio (12.00-20.00); Blood Urea Nitrogen 6.3 mg/dL (9.0-27.0); Calcium 9.4 mg/dL (8.7-10.3); Carbon Dioxide 27.4 mmol/L (20.0-27.5); Globulin 3.2 g/dL (1.6-3.3); Non-African American GFR(CKD) 91.6 (60.0-200.0); Total Bilirubin 0.3 mg/dL (0.30-1.20); Total Protein 7.3 g/dL (6.2-8.2)
[2022-07-06 15:54] LABS: Appearance,Urine Clear (Clear); Bilirubin,Urine Negative (Negative); Blood,Urine Negative (Negative); Color,Urine Yellow (Yellow); Ketones,Urine Negative (Negative); Nitrite,Urine Negative (Negative); Specific Gravity,Urine 1.012 (1.001-1.030)
[2022-07-06 16:20] LABS: Bacteria,Urine None Seen /HPF (None Seen)
== END | disposition home or self-care (01) ==
LOC: LABPAT 07:23
PROVIDERS: ATTEND Orthopaedic Surgery
DX: Z01.812 Encounter for preprocedural laboratory examination (principal); M17.12 Unilateral primary osteoarthritis, left knee
CPT/HCPCS: 36415; 80053; 81001; 85027; 85610; 85730; 87070

== ENCOUNTER → 2023-03-28 | Outpatient (CLI) | payer OTHER ==
--- NOTE | 2023-03-28 11:57 | CT ---
EXAMINATION TYPE: CT lumbar spine wo con CT DLP: 790.3 mGycm, Automated exposure control for dose reduction was used. DATE OF EXAM: 03/28/2023 8:23 AM COMPARISON: CT lumbar spine 05/15/2020. CLINICAL INDICATION:Female, 63 years old with history of M54.50 Low back pain; PHH, Low back pain; s/ p 2nd lumbar fusion follow up x 3 years ago TECHNIQUE: Multiple axial images were obtained from the midportion of T11 through the sacroiliac elin nts. Soft tissue and bone windows in coronal and sagittal planes were obtained and reviewed. 3-D ref ormats of the bones were created on a separate workstation and submitted for review. Contrast used: mL of , none. Oral contrast used: none. FINDINGS: 5 lumbar-type vertebral bodies are presumed for communication purposes. Redemonstration of status pos t placement of bilateral pedicle screws and posterior fixation rods spanning the L5-S1 levels. Prosth etic disc interspace material also L5-S1. The hardware appears intact and normally aligned. No abnorm al perihardware lucency is seen. Postlaminectomy changes at L3 and L4, new from prior, without clear evidence of abnormal fluid collection. No acute fracture or osseous destructive process seen througho ut the lumbar spine. Severe degenerative disc disease with joint space narrowing, endplate sclerosis and marginal osteophy tosis L3-L4, similar to prior. Mild degenerative changes of the upper lumbar spine with stable minimal retrolisthesis L2 on L3 which appears degenerative. Superior endplate Schmorl's node at L1, similar to previous. No evidence of ac mundo compression fractures. T12-L1, mild broad-based posterior disc bulge with calcified margin causes mild canal stenosis anteri mony. L1-L2, mild broad-based posterior disc bulge appears to cause mild canal and neural foraminal narrowi ng. L2-L3, mild posterior disc osteophyte complex causes mild canal and neural foraminal stenoses. L3-L4, Severe degenerative disc disease with joint space narrowing, endplate sclerosis and marginal o steophytosis L3-L4, similar to prior. Endplate spurring at this level causes mild to moderate canal a nd neural foraminal stenoses, as before. L4-L5 and L5-S1, mild posterior disc osteophyte complexes with mild canal and neural foraminal stenos es. Visualized sacrum and pelvis appear intact. Mild degenerative change of the SI joints. Partially imag ed left hip arthroplasty. Included soft tissues show moderate atherosclerotic calcification of the abdominal aorta and branches . No evidence of AAA. IMPRESSION: 1. Generally mild to moderate multilevel lumbar spondylosis, plus severe degenerative disc disease L 3-L4, with findings detailed level by level above. 2. Interval laminectomy L3-L4 has been performed. 3. Redemonstration status post posterior lumbar interbody fusion L5-S1 with prosthetic disc material . Hardware appears intact without evidence of complication. 4. No acute bony abnormality or significant change otherwise compared to the prior exam.
== END | disposition home or self-care (01) ==
LOC: RADCTMAIN 07:59
PROVIDERS: ATTEND Neurological Surgery
DX: M51.36 Other intervertebral disc degeneration, lumbar region (principal); M47.816 Spondylosis without myelopathy or radiculopathy, lumbar region; Z78.0 Asymptomatic menopausal state; Z98.1 Arthrodesis status
CPT/HCPCS: 72131

== ENCOUNTER → 2023-04-25 | Outpatient (CLI) | payer OTHER ==
--- NOTE | 2023-04-25 08:52 | XR ---
EXAMINATION TYPE: XR chest 2V DATE OF EXAM: 04/25/2023 COMPARISON: 06/03/2017 TECHNIQUE: PA and lateral views submitted. HISTORY: Preop FINDINGS: The lungs are clear and there is no pneumothorax, pleural effusion, or focal pneumonia. Heart size normal and no overt failure. Osseous structures demonstrate hypertrophic and degenerative changes of the spine. Postsurgical change bilateral shoulders. IMPRESSION: 1. No acute process.
[2023-04-25 09:11] LABS: INR 0.9 (<1.2); Partial Thromboplastin Time 24.4 sec (22.0-30.0); Prothrombin Time 10.3 sec (10.0-12.5)
[2023-04-25 11:26] LABS: ALT 21 U/L (8-44); AST 18 U/L (13-35); Albumin 4.1 g/dL (3.8-4.9); Albumin/Globulin Ratio 1.64 Ratio (1.60-3.17); Alkaline Phosphatase 96 U/L (41-126); BUN/Creat Ratio 10.57 Ratio (12.00-20.00); Blood Urea Nitrogen 7.4 mg/dL (9.0-27.0); Calcium 9.3 mg/dL (8.7-10.3); Carbon Dioxide 25.9 mmol/L (21.6-31.8); Chloride 103 mmol/L (96-109); Globulin 2.5 g/dL (1.6-3.3); Glucose 129 mg/dL (70-110); Potassium 4.6 mmol/L (3.5-5.5); Sodium 139 mmol/L (135-145); Total Bilirubin 0.2 mg/dL (0.3-1.2); Total Protein 6.6 g/dL (6.2-8.2)
[2023-04-25 16:14] LABS: Appearance,Urine Clear (Clear); Bilirubin,Urine Negative (Negative); Blood,Urine Negative (Negative); Color,Urine Yellow (Yellow); Ketones,Urine Negative (Negative); Nitrite,Urine Negative (Negative); PH, Urine 6.5; Specific Gravity,Urine 1.005 (1.001-1.030); Urobilinogen,Urine 0.2 E.U./DL
[2023-04-25 16:19] LABS: Bacteria,Urine None Seen (None Seen)
== END | disposition home or self-care (01) ==
LOC: LABWHC1 07:59
PROVIDERS: ATTEND Neurological Surgery
DX: Z01.818 Encounter for other preprocedural examination (principal)
CPT/HCPCS: 36415; 71046; 80053; 81001; 83036; 85610; 85730; 86850; 86900; 86901; 87070; 87086

== ENCOUNTER → 2023-06-28 | Outpatient (CLI) | payer OTHER ==
--- NOTE | 2023-06-28 13:00 | XR ---
EXAM TYPE: LUMBAR SPINE X RAY SERIES COMPARISON: 01/01/2013 HISTORY: Low back pain TECHNIQUE: 4 views are submitted. FINDINGS: Alignment is anatomic. Postsurgical changes L4-5 and L5-S1 with grade 1 anterolisthesis L5-S1. Severe degenerative disc disease L3-L1 diffuse osteopenia. Vascular calcium dictation. The pedicles are intact. The transverse processes are intact. Suspect fo raminal protrusion levels L3-S1. IMPRESSION: 1. Postsurgical changes with grade 1 anterolisthesis L5-S1 not seen on prior exam. 2. Severe degenerative disc disease L3-L4.
== END | disposition home or self-care (01) ==
LOC: RADXRMAIN 12:33
PROVIDERS: ATTEND Neurological Surgery
DX: M51.36 Other intervertebral disc degeneration, lumbar region (principal); Z98.1 Arthrodesis status
CPT/HCPCS: 72100

== ENCOUNTER → 2024-01-12 | Outpatient (CLI) | payer OTHER ==
--- NOTE | 2024-01-12 10:52 | CTL ---
EXAMINATION TYPE: CT Low Dose Lung DATE OF EXAM ORDERED: 01/12/2024 History: Lung cancer screening CT DLP: [address] CTDI: 2.18 mGy Automated exposure control for dose reduction was used. Comparison: 05/06/2017 TECHNIQUE: Low dose computed tomography scan was performed through the chest at 1 mm thick sections a nd reconstructed images in multiple planes at 1 mm and [address] DIAGNOSTIC QUALITY: Satisfactory FINDINGS: There are a few scattered stable micronodules and a stable 8 mm juxtapleural nodule in the left fissu re. No new or suspicious lung mass or nodule is seen. There is no airspace consolidation. There is no abnormal interstitial density. There is no pleural effusion, pleural thickening or pneumothorax. The great vessels the chest are normal and there is no mediastinal, hilar or axillary adenopathy. Limited scanning through the upper abdomen reveals no gross abnormality. No focal osseous lesions are seen. IMPRESSION: 1. BI-RADS Category 2 benign findings. Continue routine screening yearly intervals. 2. No acute cardiopulmonary disease. [facility], Workstation: [email or web address] 01/12/2024 10:50 AM
== END | disposition home or self-care (01) ==
LOC: RADCTMAIN 10:14
PROVIDERS: ATTEND Family Medicine
DX: Z12.2 Encounter for screening for malignant neoplasm of respiratory organs (principal); F17.210 Nicotine dependence, cigarettes, uncomplicated
CPT/HCPCS: 71271

== ENCOUNTER → 2024-01-26 | Outpatient (CLI) | payer OTHER ==
--- NOTE | 2024-01-26 11:21 | CT ---
EXAMINATION TYPE: CT lumbar spine wo con DATE OF EXAM: 01/26/2024 11:11 AM COMPARISON: 03/28/2023 HISTORY: back pain hx of sx apr 2023 CT DLP: 990 mGycm Automated exposure control for dose reduction was used. Unenhanced CT of the lumbar spine was performed. Bone and soft tissue window settings are submitted as well as coronal and sagittal reconstructions. Findings: There are postsurgical changes of wide laminectomy from L to 3 through L5-S1. There is posterior meta llic and interpreted body fusion at the L4 through S1. There is metallic fragment in the spinal canal at the L4-5 level which appears to be a portion of the interbody fusion device. There is marked disc space narrowing and spondylosis at the L3-4 level. The L4-5 and L2-3 and L1-2 di scs are fairly well preserved and are stable. IMPRESSION: 1. Post surgical changes of wide laminectomy from L2-3 through L5-S1 and posterior metallic and inter body fusion of L4-5 and L5-S1. A portion of the interbody fusion device at the L4-5 level appears to be within the spinal canal on the right. 2. Stable advanced degenerative disc disease at the L3-4 level. [facility], , 01/26/2024 11:19 AM
== END | disposition home or self-care (01) ==
LOC: RADCTMAIN 10:52
PROVIDERS: ATTEND Neurological Surgery
DX: Z98.1 Arthrodesis status
CPT/HCPCS: 72131

== ENCOUNTER → 2024-10-10 | Outpatient (CLI) | payer MEDICARE, OTHER | END | disposition home or self-care (01) | LOC: LABWHC1 11:10 | DX: Z53.9 Procedure and treatment not carried out, unspecified reason (principal) ==

== ENCOUNTER → 2024-10-18 | Outpatient (CLI) | payer MEDICARE, OTHER ==
[2024-10-18 15:47] LABS: INR 0.9 (<1.2); Partial Thromboplastin Time 23.5 sec (22.0-30.0); Prothrombin Time 10.4 sec (10.0-12.5)
[2024-10-18 19:54] LABS: ALT 16 U/L (8-44); AST 17 U/L (13-35); Albumin 4.1 g/dL (3.8-4.9); Albumin/Globulin Ratio 1.64 Ratio (1.60-3.17); Alkaline Phosphatase 95 U/L (41-126); Anion Gap 10.30 mmol/L (4.00-12.00); BUN/Creat Ratio 8.50 Ratio (12.00-20.00); Blood Urea Nitrogen 5.1 mg/dL (9.0-27.0); Calcium 8.9 mg/dL (8.7-10.3); Carbon Dioxide 26.7 mmol/L (21.6-31.8); Chloride 102 mmol/L (96-109); Cholesterol 211.00 mg/dL (0.00-200.00); Globulin 2.5 g/dL (1.6-3.3); Glucose 133 mg/dL (70-110); HDL Cholesterol 37.20 mg/dL (40.00-60.00); LDL Cholesterol,Calculated 123.2 mg/dL (0.0-131.0); Magnesium 1.9 mg/dL (1.5-2.4); Potassium 4.3 mmol/L (3.5-5.5); Sodium 139 mmol/L (135-145); Total Protein 6.6 g/dL (6.2-8.2); Triglycerides 253.00 mg/dL (0.00-149.00); VLDL Calculation 50.60 mg/dL (5.00-40.00)
[2024-10-18 20:05] LABS: Basophils # (A) 0.06 X 10*3/uL (0.00-0.10); Basophils % (A) 0.6 %; Eosinophils # (A) 0.50 X 10*3/uL (0.04-0.35); Eosinophils % (A) 5.1 %; HCT 37.0 % (37.2-46.3); HGB 12.0 g/dL (12.0-15.0); Immature Grans, Automated 0.30 %; Lymphocytes # (A) 3.76 X 10*3/uL (0.90-5.00); Lymphocytes % (A) 38.3 %; MCH 30.1 pg (27.0-32.0); MCHC 32.4 g/dL (32.0-37.0); MCV 92.7 FL (80.0-97.0); Monocytes # (A) 0.93 X 10*3/uL (0.20-1.00); Monocytes % (A) 9.5 %; NRBC Per 100 WBC 0 X 10*3/uL (0.00-0.01); Neutrophils # (A) 4.53 X 10*3/uL (1.80-7.70); Neutrophils % (A) 46.2 %; Platelet Count 318 X 10*3/uL (140-440); RBC 3.99 X 10*6/uL (4.10-5.20); RDW 12.7 % (11.5-14.5); WBC 9.81 X 10*3/uL (4.50-10.00)
== END | disposition home or self-care (01) ==
LOC: LABWHC1 13:20
PROVIDERS: ATTEND Internal Medicine
DX: Z00.00 Encounter for general adult medical examination without abnormal findings (principal); M48.062 Spinal stenosis, lumbar region with neurogenic claudication; M43.16 Spondylolisthesis, lumbar region; R53.82 Chronic fatigue, unspecified
CPT/HCPCS: 36415; 80053; 80061; 83036; 83735; 84443; 85025; 85610; 85730; 86850; 86900; 86901; 93005